=== PATIENT | male | born 1975 | race Caucasian/White ===

== ENCOUNTER → 2018-11-06 16:48 | Outpatient (CLI) | payer OTHER, SELFPAY ==
--- NOTE | 2018-11-06 16:53 | MR_ITS ---
PROCEDURE: MR KNEE RT WO CON CLINICAL INDICATION: RIGHT KNEE PAIN Medial knee pain and swelling. Prior ACL repair the min COMPARISON: LEAJW/ORT MRI-LOW EXT ANY JOINT W/O-RT from 08/12/2015 Knee R from 10/17/2018 TECHNIQUE: Routine multiplanar multi echo sequences are performed without gadolinium enhancement. FINDINGS: There has been prior ACL repair. The graft is fairly thick and does not appear discontinuous. The PCL and the collateral ligaments appear intact. The patellar tendon and quadriceps tendon have an unremarkable appearance. There is increased T2 signal involving the medial aspect of the anterior horn of the lateral meniscus but does not meet strict MRI criteria for meniscal tear and had a similar appearance on the previous exam. There is complex tear involving the posterior horn of the medial meniscus which has developed since the previous study. There is some mild separation of the meniscal fragments at this area by approximately 4 mm. 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 There is a small knee joint effusion in the suprapatellar region. There is fairly significant artifact from the ACL surgery. Patellar cartilage is well preserved. IMPRESSION: 1. Prior ACL repair. The ACL graft appears intact 2. Complex tear involves the posterior horn of the medial meniscus with mild separation of the meniscal fragments 3. Small knee joint effusion Dictated by: Trell Marino MD 11/07/2018 12:30 Signed by: <Electronically signed by Trell Marino MD in [place]> 11/07/2018 12:30
== END ==
PROVIDERS: PCP Internal Medicine Adolescent Medicine; Visit Provider Internal Medicine Adolescent Medicine
DX: M25.561 Pain in right knee (principal)
CPT/HCPCS: 73721

== ENCOUNTER → 2018-12-03 16:33 | Outpatient (CLI) | payer OTHER, SELFPAY ==
--- NOTE | 2018-12-03 16:43 | XR_ITS ---
PROCEDURE: XR CHEST 2V CLINICAL HISTORY: CURRENT SMOKER COMPARISON: CXR CHEST(2 VIEWS-NOT PORTABLE) from 07/05/2014 CXR CHEST(2 VIEWS-NOT PORTABLE) from 07/10/[address] [facility] [address] CHEST W/O CONTRAST from 10/07/2016 FINDINGS: The cardiomediastinal silhouette and pulmonary vascularity are within normal limits. The lungs are clear without infiltrates, suspicious nodules, or pleural effusions. No acute bony abnormalities. IMPRESSION: No acute findings. Dictated by: Trell Marino MD 12/03/2018 16:55 Electronically signed by Trell Marino MD in [place] 12/03/2018 16:55
[2018-12-03 17:17] LABS: Basophils # 0.2 K/mm3 (0-0.2); Basophils % 1.1 % (0.1-2.0); Eosinophils # 0.6 K/mm3 (0.0-0.4); Eosinophils % 4.5 % (0.1-12.0); Hematocrit 48.9 % (42.0-52.0); Hemoglobin 15.7 g/dL (14.1-18.0); Lymphocytes % 29.2 % (10-50); Mean Corpuscular HGB Conc 32.1 g/dL (31.8-35.4); Mean Corpuscular Hemoglobin 28.8 pg (27.0-31.2); Mean Corpuscular Volume 89.9 fl (80-94); Mean Platelet Volume 6.9 fl (7.4-10.4); Monocytes % 7.1 % (1.7-9.3); Neutrophils # 7.9 K/mm3 (1.8-7.8); Platelet Count 482 K/mm3 (142-424); Red Blood Count 5.44 M/mm3 (4.60-6.20); Red Cell Distribution Width 14.6 % (11.5-17.5); White Blood Count 13.6 K/mm3 (4.8-10.8)
[2018-12-03 18:08] LABS: Anion Gap 13.4 mEq/L (5-15); Blood Urea Nitrogen 12 mg/dL (7-18); Calcium 8.7 mg/dL (8.5-10.1); Carbon Dioxide 29 mmol/L (21.0-32.0); Chloride 102 mmol/L (98-107); Creatinine,Serum 0.89 mg/dL (0.70-1.30); Estimated Glomerular Filt Rate 92 ml/min (>60); GFR (African American) 112 ML/MIN (>60); Glucose 82 mg/dL (74-106); Potassium 4.4 mmoL/L (3.5-5.1); Sodium 140 mmol/L (136-145)
== END ==
PROVIDERS: PCP Internal Medicine Adolescent Medicine; Visit Provider Orthopaedic Surgery
DX: Z01.818 Encounter for other preprocedural examination (principal); S83.231A Complex tear of medial meniscus, current injury, right knee, initial encounter
CPT/HCPCS: 36415; 71046; 80048; 85025

== ENCOUNTER 2019-09-18 08:46 | Emergency (ER) | payer OTHER, SELFPAY ==
[2019-09-18 09:00] VITALS: BP 129/90; PULSE 91; RESP 14; TEMP 36.8; O2SAT 99; BMI 34.0
--- NOTE | 2019-09-18 09:05 | XR_ITS ---
PROCEDURE: XR ANKLE RT MIN 3V CLINICAL INDICATION: heel pain COMPARISON: No exams were available for comparison FINDINGS: No fracture or dislocation. No lytic or blastic change. No significant degenerative change. There is a small os trigonum and a small calcaneal spur. IMPRESSION: Negative right ankle Dictated by: Trell Marino MD 09/18/2019 09:42 Electronically signed by Trell Marino MD in [place] 09/18/2019 09:42
--- NOTE | 2019-09-18 09:06 | XR_ITS ---
PROCEDURE: XR FOOT RT MIN 3V CLINICAL INDICATION: pain Pain COMPARISON: FTL3 FOOT-LT-3 VIEWS from 05/10/2013 FINDINGS: No fracture or dislocation. No lytic or blastic change. There is normal mineralization. The joint spaces are well-preserved. No significant degenerative/arthritic changes. No erosive changes evident. Other findings:There is a small calcaneal spur without obvious erosive change. IMPRESSION: No acute findings. Dictated by: Trell Marino MD 09/18/2019 09:46 Electronically signed by Trell Marino MD in [place] 09/18/2019 09:46
--- NOTE | 2019-09-18 09:07 | HMH.EDGENADL ---
ED Disposition Clinical Impression: Right Achilles tendinitis Disposition: Home, Self-Care Condition on Discharge: Good Instructions: DI for Achilles Tendinopathy Prescriptions: Ibuprofen [Ibuprofen 800mg Tablet] 800 mg PO TIDP PRN #20 tab PRN Reason: Moderate Pain Transmission Status: Pending to [facility] Referrals: Hany Espinosa MD [Primary Care Provider] - Time of Disposition: 09:58 - Critical Care Critical Care Time: No Attestation: On , the high probability of a clinically significant, sudden or life threatening deterioration of the following system(s) required my full and direct attention, intervention and personal management. The time I documented below is in addition to time spent performing reported procedures but includes the following listed in this critical care notation. Medical Decision Making - Medical Records Medical records reviewed: Yes: I reviewed the patient's medical records. - Kyle Inquiry Pt receiving controlled substance: No Vital Signs: 09/18/19 09:00 09/18/19 09:30 Temperature 98.3 F Temperature Source Oral Pulse Rate [Right Brachial] 91 H 89 Respiratory Rate 14 20 Blood Pressure [Right Arm] 129/90 141/87 H Blood Pressure Mean [Right Arm] 103 105 Blood Pressure Source [Right Arm] Automatic Cuff Automatic Cuff Blood Pressure Position [Right Arm] Sitting Supine 02 Sat by Pulse Oximetry 99 100 Oxygen Delivery Method Room Air Room Air Orders (Tests/Meds): ED MEDICATIONS Discontinued Medications Generic Name Dose Route Start Last Admin Trade Name Freq PRN Reason Stop Dose Admin Ibuprofen 800 mg 09/18/19 09:06 09/18/19 09:11 Motrin 400mg Tablet PO 09/18/19 09:07 800 mg ONCE ONE Administration - Radiology Data #1 FINDINGS: No fracture or dislocation. No lytic or blastic change. There is normal mineralization. The joint spaces are well-preserved. No significant degenerative/arthritic changes. No erosive changes evident. Other findings:There is a small calcaneal spur without obvious erosive change. IMPRESSION: No acute findings. #2 FINDINGS: No fracture or dislocation. No lytic or blastic change. No significant degenerative change. There is a small os trigonum and a small calcaneal spur. IMPRESSION: Negative right ankle - Reevaluation(s) Time: 09:57 Reevaluation #1: On reevaluation, the patient's pain has improved. I do believe he likely has tendon injury to the Achilles area. Patient will be discharged with analgesics. He was provided Lamonte wrap. Given injury prevention instructions. As well as strict return precautions. Verbalized understanding. Medical Decision Narrative: This is a 43-year-old male presented to the emergency department with right foot pain. I do believe patient has symptoms consistent with Achilles tendon sprain. Imaging will be obtained. General Adult HPI - General Chief complaint: PAIN Stated complaint: right foot injury at work Time Seen by Provider: 09/18/19 09:00 Mode of Arrival: Ambulatory Limitations: No Limitations Description of Symptoms (Recalled from ER Triage Doc. by RN): pt c/o pain in his right heel in the back of his ankle. Started hurting a couple of days ago. Denies any injury and unaware of anyting he may have done to injury it - History of Present Illness HPI narrative: This is a 43-year-old male presenting to the emergency department with pain in his right foot. Patient states the pain is located on the back near the heel. 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 He noticed yesterday that the pain started to worsen. He is having some mild swelling on the back of his foot. Worse when he tries to ambulate. He does have range of motion, however it does induce some pain. He denies any swelling in the calf or leg. No other injuries were sustained. - Related Data Home Medications
--- NOTE | 2019-09-18 09:11 | PC.NURSE ---
pt with rad at this time.
[2019-09-18 09:30] VITALS: BP 141/87; PULSE 89; RESP 20; O2SAT 100
[2019-09-18 09:51] VITALS: BP 125/92; PULSE 92; RESP 20; O2SAT 98
[2019-09-18 10:14] VITALS: BP 125/90; PULSE 95; RESP 16; TEMP 36.8; O2SAT 98
== END 2019-09-18 10:14 | disposition home or self-care (01) ==
PROVIDERS: Emergency Provider Emergency Medicine; PCP Internal Medicine Adolescent Medicine
DX: M76.61 Achilles tendinitis, right leg (principal); F17.210 Nicotine dependence, cigarettes, uncomplicated; Z88.8 Allergy status to other drugs, medicaments and biological substances; X50.1XXA Overexertion from prolonged static or awkward postures, initial encounter; Y92.69 Other specified industrial and construction area as the place of occurrence of the external cause; Y99.0 Civilian activity done for income or pay
CPT/HCPCS: 73610; 73630; 99282

== ENCOUNTER 2019-10-04 12:25 | Emergency (ER) | payer OTHER, SELFPAY ==
[2019-10-04] VITALS (12 sets, daily range): BP systolic 120–150; BP diastolic 74–88; PULSE 69–95; RESP 17–29; TEMP 36.5–36.6; O2SAT 92–98; BMI 34.7
--- NOTE | 2019-10-04 12:32 | ECG_ITS ---
APPROVED REPORT Exam: Resting ECG HR:92 bpm ECG Measurements Heart Rate 92 AXES HI 148 P 61 QRSd 100 QRS 63 QT 364 T 64 QTc 450 <Conclusion> Normal sinus rhythm Normal ECG Electronically signed by : Laurent Elias, 10/05/2019 09:03:56
--- NOTE | 2019-10-04 12:32 | XR_ITS ---
PROCEDURE: XR CHEST 2V CLINICAL HISTORY: CP COMPARISON: CXR CHEST(2 VIEWS-NOT PORTABLE) from 07/05/2014 CXR CHEST(2 VIEWS-NOT PORTABLE) from 07/10/[address] [facility] [address] CHEST W/O CONTRAST from 10/07/2016 XR CHEST 2V from 12/03/2018 FINDINGS: The cardiomediastinal silhouette and pulmonary vascularity are within normal limits. The lungs are clear without infiltrates, suspicious nodules, or pleural effusions. No acute bony abnormalities. IMPRESSION: No acute findings. Dictated by: Dr. Jose Maria Nguyen MD 10/04/2019 13:[address] Jose Maria Nguyen MD in [place] 10/04/2019 13:47
--- NOTE | 2019-10-04 12:34 | HMH.EDCP ---
ED Disposition Clinical Impression: Atypical chest pain Disposition: Home, Self-Care Condition on Discharge: Good Instructions: DI for Atypical Chest Pain Prescriptions: hydrOXYzine HCL [Hydroxyzine HCl] 50 mg PO Q8HP PRN #30 tab PRN Reason: anxiety/insomnia Transmission Status: Pending to [facility] Referrals: Edward Valderrama MD [Primary Care Provider] - - Critical Care Critical Care Time: No Attestation: On 10/04/19, the high probability of a clinically significant, sudden or life threatening deterioration of the following system(s) required my full and direct attention, intervention and personal management. The time I documented below is in addition to time spent performing reported procedures but includes the following listed in this critical care notation. Medical Decision Making - Medical Records Medical records reviewed: Yes: I reviewed the patient's medical records. - Kyle Inquiry Pt receiving controlled substance: No Vital Signs: 10/04/19 12:25 10/04/19 13:12 10/04/19 13:28 Temperature 97.7 F Temperature Source Oral Pulse Rate [Left Radial] 93 H 90 85 Respiratory Rate 22 17 26 H Blood Pressure [Right Arm] 150/88 H 129/74 133/86 Blood Pressure Mean [Right Arm] 108 92 101 Blood Pressure Source [Right Arm] Automatic Cuff Blood Pressure Position [Right Arm] Sitting Supine Sitting 02 Sat by Pulse Oximetry 98 96 98 Oxygen Delivery Method Room Air Room Air Room Air 10/04/19 13:33 10/04/19 14:02 10/04/19 14:32 Temperature Temperature Source Pulse Rate [Left Radial] 86 80 72 Respiratory Rate 23 29 H 18 Blood Pressure [Right Arm] 132/86 130/77 127/82 Blood Pressure Mean [Right Arm] 101 94 97 Blood Pressure Source [Right Arm] Automatic Cuff Automatic Cuff Automatic Cuff Blood Pressure Position [Right Arm] Supine Supine Supine 02 Sat by Pulse Oximetry 92 L 95 96 Oxygen Delivery Method Room Air Room Air Room Air 10/04/19 15:17 10/04/19 15:38 10/04/19 16:25 Temperature Temperature Source Pulse Rate [Left Radial] 72 78 Respiratory Rate 20 21 20 Blood Pressure [Right Arm] 126/84 140/86 134/79 Blood Pressure Mean [Right Arm] 98 104 97 Blood Pressure Source [Right Arm] Automatic Cuff Automatic Cuff Automatic Cuff Blood Pressure Position [Right Arm] Supine Supine Supine 02 Sat by Pulse Oximetry 95 94 L 93 L Oxygen Delivery Method Room Air Room Air 10/04/19 16:55 Temperature Temperature Source Pulse Rate [Left Radial] 69 Respiratory Rate 18 Blood Pressure [Right Arm] 120/81 Blood Pressure Mean [Right Arm] 94 Blood Pressure Source [Right Arm] Automatic Cuff Blood Pressure Position [Right Arm] Supine 02 Sat by Pulse Oximetry 94 L Oxygen Delivery Method Room Air - Lab Data Lab results reviewed: Yes: I reviewed the patient's lab results. Lab Results 10/04/19 12:33: VBG pH 7.36, VBG pCO2 45.6, VBG pO2 59.6 H, VBG HCO3 25.1, VBG Total CO2 26.5, VBG O2 Saturation 91.5 H, VBG Base Excess -0.3 10/04/19 12:44: WBC 11.0 H, RBC 5.45, Hgb 17.0, Hct 48.3, MCV 88.6, MCH 31.1, MCHC 35.1, RDW 13.8, Plt Count 387, MPV 7.0 L, Neut % (Auto) 50.3, Lymph % (Auto) 33.7, Gillespie % (Auto) 6.6, Eos % (Auto) 8.2, Baso % (Auto) 1.2, Neut # (Auto) 5.6, Lymph # (Auto) 3.7, Gillespie # (Auto) 0.7, Eos # (Auto) 0.9 H, Baso # (Auto) 0.1 10/04/19 12:44: Sodium 138, Potassium 3.6, Chloride 102, Carbon Dioxide 26, Anion Gap 13.6, BUN 10, Creatinine 0.80, Estimated Creat Clear 200, Estimated GFR 104, Est GFR ( Amer) 126, Glucose 126 H, Calcium 9.4, Troponin I < 0.01, NT-Pro-B Natriuret Pep 32.8, TSH 2.27 10/04/19 12:44: D-Dimer < 100 10/04/19 14:04: Troponin I < 0.01 10/04/19 16:41: Troponin I < 0.01 Result diagrams: 10/04/19 12:44 10/04/19 12:44 Orders (Tests/Meds): ED MEDICATIONS Generic Name Dose Route Start Last Admin Trade Name Freq PRN Reason Stop Dose Admin Sodium Chloride 10 ml 10/04/19 12:34 10/04/19 12:47 Sodium Chloride 0.9% 10ml Vial IV 11/03/19 12:33 10 ml
[2019-10-04 12:45] LABS: Basophils # 0.1 K/mm3 (0-0.2); Basophils % 1.2 % (0.1-2.0); Eosinophils # 0.9 K/mm3 (0.0-0.4); Eosinophils % 8.2 % (0.1-12.0); Hematocrit 48.3 % (42.0-52.0); Lymphocytes # 3.7 K/mm3 (0.7-4.5); Lymphocytes % 33.7 % (10-50); Mean Corpuscular HGB Conc 35.1 g/dL (31.8-35.4); Mean Corpuscular Hemoglobin 31.1 pg (27.0-31.2); Mean Corpuscular Volume 88.6 fl (80-94); Monocytes # 0.7 K/mm3 (0.1-1.0); Monocytes % 6.6 % (1.7-9.3); Neutrophils # 5.6 K/mm3 (1.8-7.8); Neutrophils % 50.3 % (37.0-80.0); Platelet Count 387 K/mm3 (142-424); Red Blood Count 5.45 M/mm3 (4.60-6.20); Red Cell Distribution Width 13.8 % (11.5-17.5)
[2019-10-04 12:48] LABS: Chloride 102 mmol/L (98-107); Sodium 138 mmol/L (136-145)
[2019-10-04 12:49] LABS: Potassium 3.6 mmoL/L (3.5-5.1)
[2019-10-04 12:51] LABS: Blood Urea Nitrogen 10 mg/dl (9-20); Creatinine Clearance Estimated 200 mL/min (50-200); Estimated Glomerular Filt Rate 104 ml/min (>60); GFR (African American) 126 ML/MIN (>60)
[2019-10-04 12:52] LABS: Anion Gap 13.6 mEq/L (5-15); Calcium 9.4 mg/dl (8.4-10.2); Carbon Dioxide 26 mmol/L (22.0-30.0); Glucose 126 mg/dl (74-100)
[2019-10-04 13:01] LABS: NT Pro Brain Natriuretic Pep. 32.8 pg/mL (0-125)
[2019-10-04 13:03] LABS: VBG Base Excess -0.3 mmol/L (-2.4-2.3); VBG HCO3 25.1 mmol/L (23-30); VBG PCO2 45.6 mmol/L (35-51); VBG PH 7.36 mmol/L (7.31-7.41); VBG PO2 59.6 mmol/L (28-40); VBG Total CO2 26.5 mmol/L (23-27)
[2019-10-04 13:04] LABS: VBG Oxygen Saturation 91.5 % (50-70)
[2019-10-04 13:09] LABS: Troponin I < 0.01 ng/ml (0.00-0.034)
[2019-10-04 13:10] LABS: D-Dimer < 100 ng/mL (0-400)
--- NOTE | 2019-10-04 13:13 | PC.NURSE ---
pt states he has had 2 episodes of chest tightness since coming to the ed. pt states something just doesn't feel right .
--- NOTE | 2019-10-04 13:15 | ECG_ITS ---
APPROVED REPORT Exam: Resting ECG HR:89 bpm ECG Measurements Heart Rate 89 AXES NE 150 P 56 QRSd 94 QRS 58 QT 362 T 60 QTc 440 <Conclusion> Normal sinus rhythm Normal ECG Electronically signed by : Laurent Elias, 10/05/2019 09:04:04
--- NOTE | 2019-10-04 13:16 | PC.NURSE ---
pt's came to nurses station stating pt is having chest tightness radiating into rt side neck.
--- NOTE | 2019-10-04 13:16 | PC.NURSE ---
informed of pt c/o chest tightness
--- NOTE | 2019-10-04 13:19 | ECG_ITS ---
APPROVED REPORT Exam: Resting ECG HR:93 bpm ECG Measurements Heart Rate 93 AXES WA 150 P 64 QRSd 96 QRS 59 QT 362 T 62 QTc 450 <Conclusion> Normal sinus rhythm Normal ECG Electronically signed by : Laurent Elias, 10/05/2019 09:04:51
[2019-10-04 13:23] LABS: Thyroid Stimulating Hormone 2.27 uIU/mL (0.465-4.68)
--- NOTE | 2019-10-04 13:31 | PC.NURSE ---
at bedside updated on plan of care
--- NOTE | 2019-10-04 13:34 | PC.NURSE ---
got pt a drink
[2019-10-04 14:45] LABS: Troponin I < 0.01 ng/ml (0.00-0.034)
--- NOTE | 2019-10-04 15:03 | PC.NURSE ---
dr inocencia berry.
--- NOTE | 2019-10-04 15:10 | PC.NURSE ---
speaking to Dr Ibarra
[2019-10-04 17:08] LABS: Troponin I < 0.01 ng/ml (0.00-0.034)
--- NOTE | 2019-10-04 17:22 | PC.NURSE ---
pt has been in room resting have been checking on pt every 1/2 hr or so to see if he has needed anything. has been in room with pt
== END 2019-10-04 17:49 | disposition home or self-care (01) ==
PROVIDERS: Emergency Provider Emergency Medicine; PCP Internal Medicine Adolescent Medicine
DX: R07.89 Other chest pain (principal); F17.210 Nicotine dependence, cigarettes, uncomplicated
CPT/HCPCS: 71046; 80048; 82803; 83880; 84443; 84484; 85025; 85378; 93005; 96372; 96374; 99284

== ENCOUNTER 2019-12-11 12:04 | Emergency (ER) | payer OTHER, SELFPAY ==
[2019-12-11 12:12] VITALS: BP 129/85; PULSE 98; RESP 18; TEMP 36.7; O2SAT 99; BMI 35.3
--- NOTE | 2019-12-11 12:53 | HMH.EDUTC ---
[facility] [place] Disposition Clinical Impression: Viral syndrome Disposition: Home, Self-Care Condition on Discharge: Good Instructions: Preventing the Spread of Coronavirus Discharge Instructions Additional Instructions: Drink plenty of fluids. Take tylenol or ibuprofen for pain or fever. Take the medications as directed. Follow up with your regular doctor. GO TO THE ER FOR ANY WORSENING SYMPTOMS FOLLOW THE DIRECTIONS ON THE COVID-19 HAND OUT THAT WE GAVE YOU REGARDING SELF-ISOLATION UNTIL YOU KNOW YOUR COVID-19 RESULTS Prescriptions: Halobetasol Propionate 15 gm TP BIDP PRN #1 tube PRN Reason: Itching Transmission Status: Received by [facility] Referrals: Hany Espinosa MD [Primary Care Provider] - Time of Disposition: 13:16 Medical Decision Making - Medical Records Medical records reviewed: Yes: I reviewed the patient's medical records. - Kyle Inquiry Pt receiving controlled substance: No Vital Signs: 12/11/19 12:12 12/11/19 12:55 Temperature 98.0 F 98.0 F Temperature Source Oral Oral Pulse Rate 98 H Pulse Rate [Radial] 98 H Respiratory Rate 18 18 Blood Pressure 129/85 Blood Pressure [Right Arm] 129/85 Blood Pressure Mean [Right Arm] 99 Blood Pressure Source Automatic Cuff Blood Pressure Source [Right Arm] Automatic Cuff Blood Pressure Position Sitting Blood Pressure Position [Right Arm] Sitting 02 Sat by Pulse Oximetry 99 Oxygen Delivery Method Room Air Room Air [facility] [place] HPI - General Stated complaint: right foot pain Time Seen by Provider: 12/11/19 12:15 Mode of Arrival: Ambulatory Source of Information: Patient Limitations: No Limitations Description of Symptoms (Recalled from Triage Doc. by RN): sore on right foot. Needs medication refill. HEENT Symptoms (Recalled from RN notes): No Resp Symptoms (Recalled from RN notes): No Skin Symptoms (Recalled from RN notes): Yes MS Symptoms (Recalled from RN notes): No Functional Status (Recalled from RN notes): wnl - History of Present Illness Provider Complaint: He has a history of a long standing rash on his feet. 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 So, he is out of refills on the cream that he puts on his foot and he is having a breakout. - Related Data Previous Rx's Medication Instructions Recorded hydrOXYzine HCL [Hydroxyzine HCl] 50 mg PO Q8HP PRN #30 tab 10/04/19 Halobetasol Propionate 15 gm TP BIDP PRN #1 tube 12/11/19 Allergies Allergy/AdvReac Type Severity Reaction Status Date / Time acetaminophen Allergy Unknown Verified 09/18/19 09:07 promethazine Allergy Unknown NA-HALLUCIN Verified 09/18/19 09:07 ATIONS - Worker's Comp Is this a Worker's Comp case?: No [facility] History - Hepatitis A Screen Drug use history?: No High risk sexual behaviors?: No History of sexually transmitted infection?: No Currently employed?: No Childcare worker?: No Do you have indoor plumbing?: Yes Do you have electricity?: Yes Attestation statement:: This patient has been screened for Hepatitis A risk factors. I have reviewed the patient's past medical history: Yes Medical History: Denies:: Diabetes Mellitus Type 1, Diabetes Mellitus Type 2, Seizures Other Medical History: Denies: Blood Transfusion Reaction Comment: obesity Laterality Cases: Right: ACL Repair, Arthroscopy Knee, Bilateral: Tonsillectomy Amputation: No Fractures: No - Social History Smoking Status: Current every day smoker Tobacco Type: cigarettes # Packs/Day (cigarettes): 1 Alcohol Intake: never Substance Use Type: denies use Occupational Status: employed Housing: house Household Members: other Family Hx:: No significant family history ROS Obtained: Yes All systems reviewed & no additional complaints - Constitutional Constitutional: Denies chills, Denies fever(s) - Integumentary/Breas
[2019-12-11 12:55] VITALS: BP 129/85; PULSE 98; RESP 18; TEMP 36.7; O2SAT 99
== END 2019-12-11 13:04 | disposition home or self-care (01) ==
PROVIDERS: Emergency Provider Nurse Practitioner Family; PCP Internal Medicine Adolescent Medicine
DX: B34.9 Viral infection, unspecified (principal); M79.671 Pain in right foot; F17.210 Nicotine dependence, cigarettes, uncomplicated; Z88.8 Allergy status to other drugs, medicaments and biological substances
CPT/HCPCS: 99201

== ENCOUNTER 2020-09-22 16:02 | Emergency (ER) | payer OTHER, SELFPAY ==
[2020-09-22 16:10] VITALS: BP 134/107; PULSE 79; RESP 16; TEMP 37; O2SAT 95; BMI 14.7
[2020-09-22 16:13] VITALS: BP 134/107; PULSE 79; RESP 16; TEMP 37; O2SAT 95; BMI 32.5
--- NOTE | 2020-09-22 16:21 | XR_ITS ---
PROCEDURE: XR ORBIT BILATERAL MIN 4V CLINICAL INDICATION: hit in face with pry bar COMPARISON: No exams were available for comparison FINDINGS: No obvious fracture or dislocation. No sinus air-fluid level. No lytic or blastic change. Other findings:None. IMPRESSION: Negative orbits. If pain persists, then would recommend CT of the facial bones for more thorough evaluation. Dictated by: Trell Marino MD 09/22/2020 16:52 Trell Marino MD in [place] 09/22/2020 16:52
--- NOTE | 2020-09-22 16:25 | HMH.EDUTC ---
[facility] [place] Disposition Clinical Impression: Orbital contusion Qualifiers: Encounter type: initial encounter Laterality: left Qualified Code(s): S05.12XA - Contusion of eyeball and orbital tissues, left eye, initial encounter Disposition: Home, Self-Care Condition on Discharge: Good Instructions: Contusion, How To Perform RICE (Rest, Ice, Compress, Elevate) Additional Instructions: Ice to area 10-20 minutes every 2 hours for swelling Over the counter Motrin and/or Tylenol as directed on package for pain Return if needed If pain and swelling persists follow up with your family doctor if pain and swelling persist for CT or further evaluation Follow up with [facility] if you start having any pain or changes in vision Straight to ER if any life threatening symptoms or worse headache of your life Referrals: Hany Espinosa MD [Primary Care Provider] - As needed Time of Disposition: 17:04 Medical Decision Making - Kyle Inquiry Pt receiving controlled substance: No Kyle was queried for this patient: No Vital Signs: 09/22/20 16:10 09/22/20 16:13 09/22/20 17:03 Temperature 98.6 F 98.6 F 98.6 F Temperature Source Oral Oral Pulse Rate 79 Pulse Rate [Left] 79 79 Respiratory Rate 16 16 16 Blood Pressure 134/107 H Blood Pressure [Right Arm] 134/107 H 134/107 H Blood Pressure Mean [Right Arm] 116 116 Blood Pressure Source [Right Arm] Automatic Cuff Blood Pressure Position [Right Arm] Sitting Supine 02 Sat by Pulse Oximetry 95 95 Oxygen Delivery Method Room Air Room Air - Radiology Data #1 Image(s): Other (Orbital ) Image Reviewed: Yes I have reviewed radiologist's interpretation Negative orbits. If pain persists, then would recommend CT of the facial bones for more thorough evaluation. Medical Decision Narrative: Discussed with patient that could send him to the ED for CT and patient declined Patient still denies pain or injury to eye State that he is having no difficulty with vision nor does he feel any irritation or pain in eye States that just sore under left eye with swelling and bruising States that he will follow up with his PCP or return to the ED if any worsening of symptoms or pain [facility] HPI - General Stated complaint: WC 09/22@1500 injured left eye Time Seen by Provider: 09/22/20 16:26 Mode of Arrival: Ambulatory Source of Information: Patient Limitations: No Limitations Description of Symptoms (Recalled from Triage Doc. by RN): patient was using prybar when tension broke loose and pry bar hit patient in face under left eye. patient does not have any vision loss, but swelling noted under left eye with abrasion. - History of Present Illness Provider Complaint: Patient states that he was at work and was looking up using a prybar State that the tension broke and the bar hit him under his left eye Denies any trouble seeing or pain in his eye but has notiable swelling with abrasion under his left eye. State that having pain and tenderness under his eye Denies changes in vision - Related Data Home Medications Medication Instructions Recorded Confirmed No Known Home Medications 09/22/20 09/22/20 Allergies Allergy/AdvReac Type Severity Reaction Status Date / Time acetaminophen Allergy Unknown Verified 09/18/19 09:07 promethazine Allergy Unknown NA-HALLUCIN Verified 09/18/19 09:07 ATIONS - Worker's Comp Is this a Worker's Comp case?: No [facility] History - Hepatitis A Screen Drug use history?: No High risk sexual behaviors?: No History of sexually transmitted infection?: No Currently employed?: No Childcare worker?: No Do you have indoor plumbing?: Yes Do you have electricity?: Yes Attestation statement:: This patient has been screened for Hepatitis A risk factors. I have reviewed the patient's past medical history: Yes Medical History: Denies:: Diabetes Mellitus Type 1, Diabetes Mellitus Type 2, Seizures Other Medical History: Denies: Blood Transfusion Reaction
[2020-09-22 17:03] VITALS: BP 134/107; PULSE 79; RESP 16; TEMP 37; O2SAT 95
== END 2020-09-22 17:07 | disposition home or self-care (01) ==
PROVIDERS: Emergency Provider Nurse Practitioner; PCP Internal Medicine Adolescent Medicine
DX: S05.12XA Contusion of eyeball and orbital tissues, left eye, initial encounter (principal); W22.8XXA Striking against or struck by other objects, initial encounter; Y92.63 Factory as the place of occurrence of the external cause; Y99.0 Civilian activity done for income or pay; Z88.0 Allergy status to penicillin; F17.210 Nicotine dependence, cigarettes, uncomplicated
CPT/HCPCS: 70200; 99202; G0463

== ENCOUNTER 2020-12-01 11:09 | Emergency (ER) | payer OTHER, SELFPAY ==
[2020-12-01 11:20] VITALS: BP 141/84; PULSE 87; RESP 19; TEMP 36.6; O2SAT 98; BMI 35.3
--- NOTE | 2020-12-01 11:40 | HMH.EDUTC ---
[facility] [place] Clinical Impression: Sinusitis Qualifiers: Sinusitis location: unspecified location Chronicity: unspecified Qualified Code(s): J32.9 - Chronic sinusitis, unspecified Disposition: Home, Self-Care Condition on Discharge: Good Instructions: Sinusitis, DI for Sinusitis, Doxycycline, Benzonatate Additional Instructions: *Monitor Temp, Over the counter Motrin or Tylenol as directed/as needed Tylenol every 4 hours and Motrin every 6 hours (as long as your family doctor has told you that you can take it) for fever or pain. and straight to ER if unable to lower temp less than 101.0 after medication given Make sure to drink plenty of fluids Take medication as prescribed *Sleep elevated *Humidifier/Vaporizer *Flonase 2 sprays in each nostril daily but be aware that it may take 2-3 days before you notice improvement Follow up IMMEDIATELY for new or worsening symptoms or no Noticeable improvement over the next 48-72 hours. 911 for difficulty breathing or swallowing Prescriptions: Doxycycline Monohydrate [Doxycycline [place] 100mg Tab] 100 mg PO Q12 7 Days #14 tab Transmission Status: Received by [facility] Fluticasone Propionate [Flonase Allergy Relief NS] 1 spray NS DAILY #1 each Transmission Status: Received by [facility] Benzonatate [Tessalon Perle 100mg Cap*] 100 mg PO TID PRN #30 cap PRN Reason: Cough Transmission Status: Received by [facility] Referrals: Edward Valderrama MD [Primary Care Provider] - As needed Forms: Work/School Release Time of Disposition: 11:45 Medical Decision Making - Kyle Inquiry Pt receiving controlled substance: No Kyle was queried for this patient: No Vital Signs: 12/01/20 11:20 12/01/20 11:49 Temperature 97.8 F 97.8 F Temperature Source Oral Pulse Rate 87 Pulse Rate [Left] 87 Respiratory Rate 19 19 Blood Pressure 141/84 H Blood Pressure [Right Arm] 141/84 H Blood Pressure Mean [Right Arm] 103 02 Sat by Pulse Oximetry 98 Orders (Tests/Meds): ED MEDICATIONS Discontinued Medications Generic Name Dose Route Start Last Admin Trade Name Freq PRN Reason Stop Dose Admin Ceftriaxone Sodium 1 gm 12/01/20 11:41 12/01/20 11:48 Ceftriaxone 1gm Vial IM 12/01/20 11:42 1 gm ONCE ONE Administration Lidocaine HCl 0 ml 12/01/20 11:41 12/01/20 11:47 Lidocaine 1% 5ml Pf Vial IM 12/01/20 11:42 2.5 ml ONCE ONE Administration Methylprednisolone Sodium Succinate 125 mg 12/01/20 11:41 12/01/20 11:48 Methylprednisolone Sod Succ 125mg Vial IM 12/01/20 11:42 125 mg ONCE ONE Administration [facility] [place] - General Stated complaint: sinus congestion Time Seen by Provider: 12/01/20 11:40 Mode of Arrival: Ambulatory Source of Information: Patient Limitations: No Limitations Description of Symptoms (Recalled from Triage Doc. by RN): pt states he has had sinus pressure and a cough for one week. pt believes he has a sinus infection. HEENT Symptoms (Recalled from RN notes): Yes (sinus pressure) Resp Symptoms (Recalled from RN notes): Yes (cough) Skin Symptoms (Recalled from RN notes): No MS Symptoms (Recalled from RN notes): No Functional Status (Recalled from RN notes): na - History of Present Illness Provider Complaint: Patient states that he gets a sinus infection around this time every year States that for over a week he has been has been having sinus pain and pressure along with cough and drainage in the back of his throat States that he has been having pressure behind his eyes and it has continued to get worse over the last few days so he came in - Related Data Previous Rx's Medication Instructions Recorded Benzonatate [Tessalon Perle 100mg 100 mg PO TID PRN #30 cap 12/01/20 Cap*] Doxycycline Monohydrate 100 mg PO Q12 7 Days #14 tab 12/01/20 [Doxycycline [place] 100mg Tab] Fluticasone Propionate [Flonase 1 spray NS DAILY #1 each 12/01/20 Allergy Relief NS] Allergies Allergy/AdvReac T
[2020-12-01 11:49] VITALS: BP 141/84; PULSE 87; RESP 19; TEMP 36.6
== END 2020-12-01 12:03 | disposition home or self-care (01) ==
PROVIDERS: Emergency Provider Nurse Practitioner; PCP Internal Medicine Adolescent Medicine
DX: J32.9 Chronic sinusitis, unspecified (principal)
CPT/HCPCS: 96372; 99202; G0463

== ENCOUNTER → 2021-05-05 11:59 | Outpatient (CLI) | payer OTHER, SELFPAY ==
--- NOTE | 2021-05-05 12:15 | CT_ITS ---
FINAL REPORT TECHNIQUE: After the administration of intravenous contrast, axial images were obtained through the abdomen and pelvis by computed tomography. The study was performed with techniques to keep radiation dose as low as reasonably achievable, (ALARA). Individual dose reduction techniques using automated exposure control or adjustment of mA and/or kV according to the patient's size were employed. CLINICAL HISTORY: LEFT LOWER QUADRANT ABDOMINAL PAIN FINDINGS: Abdomen: The lung bases are clear. The liver parenchyma is mildly fatty infiltrated. The gallbladder is present. The spleen, pancreas, adrenals and kidneys appear unremarkable. The aorta is normal in caliber. There is no free fluid or adenopathy. Pelvis: The appendix is normal. The urinary bladder is unremarkable. There is no free fluid or adenopathy. There is a small left inguinal hernia containing fat. IMPRESSION: No acute intra-abdominal process. Mild fatty infiltration of the liver. Small left inguinal hernia containing fat. Reviewed, Interpreted and Dictated by Zackary Morillo MD Transcribed by Christian Dominguez Authenticated by Zackary Morillo MD on 05/05/2021 02:35:45 PM [facility]
[2021-05-05 12:49] LABS: Basophils # 0.2 K/mm3 (0-0.2); Basophils % 1.6 % (0.1-2.0); Eosinophils # 0.7 K/mm3 (0.0-0.4); Hematocrit 49.5 % (42.0-52.0); Hemoglobin 17.1 g/dL (14.1-18.0); Lymphocytes # 3.6 K/mm3 (0.7-4.5); Lymphocytes % 33.2 % (10-50); Mean Corpuscular HGB Conc 34.6 g/dL (31.8-35.4); Mean Corpuscular Hemoglobin 30.5 pg (27.0-31.2); Mean Platelet Volume 7.3 fl (7.4-10.4); Monocytes % 8.8 % (1.7-9.3); Neutrophils # 5.5 K/mm3 (1.8-7.8); Neutrophils % 50.5 % (37.0-80.0); Platelet Count 443 K/mm3 (142-424); Red Blood Count 5.63 M/mm3 (4.60-6.20); Red Cell Distribution Width 13.4 % (11.5-17.5); White Blood Count 10.9 K/mm3 (4.8-10.8)
[2021-05-05 13:04] LABS: Chloride 99 mmol/L (98-107); Potassium 4.8 mmoL/L (3.5-5.1); Sodium 135 mmol/L (136-145)
[2021-05-05 13:07] LABS: Alanine Aminotransferase 32 U/L (12-78); Albumin Level 4.5 g/dl (3.5-5.0); Albumin/Globulin Ratio 1.7 (1.1-1.8); Alkaline Phosphatase 80 U/L (38-126); Anion Gap 10.8 mEq/L (5-15); Aspartate Amino Transferase 36 U/L (17-59); Bilirubin,Total 1.4 mg/dl (0.2-1.3); Blood Urea Nitrogen 12 mg/dl (9-20); Carbon Dioxide 30 mmol/L (22.0-30.0); Estimated Glomerular Filt Rate 90 ml/min (>60); GFR (African American) 109 ML/MIN (>60); Globulin 2.6 g/dL (1.3-3.2); Glucose 107 mg/dl (74-100); Magnesium 1.7 mg/dl (1.6-2.3); Total Protein,Serum 7.1 g/dl (6.3-8.2)
[2021-05-05 13:47] LABS: Troponin I 1.89 ng/ml (0.00-0.034)
[2021-05-05 15:50] LABS: CATHL Activated Clotting Time 363 SEC (74-125)
[2021-05-09 16:28] LABS: Testosterone, Total, LC/MS 249.4 ng/dL (264.0-916.0)
== END ==
PROVIDERS: PCP Internal Medicine Adolescent Medicine; Visit Provider Internal Medicine Adolescent Medicine
DX: R07.9 Chest pain, unspecified (principal); R10.32 Left lower quadrant pain; E29.1 Testicular hypofunction; R25.2 Cramp and spasm
CPT/HCPCS: 36415; 74177; 80053; 83735; 84402; 84403; 84484; 85025; 85347; Q9967

== ENCOUNTER 2021-05-05 14:48 | Inpatient (IN) | payer OTHER, SELFPAY ==
[2021-05-05] VITALS (18 sets, daily range): BP systolic 112–161; BP diastolic 60–96; PULSE 74–100; RESP 18–22; TEMP 36.9–37.1; O2SAT 92–99; BMI 35.3; BMI 36.3
--- NOTE | 2021-05-05 | IR_ITS ---
APPROVED REPORT Patient Location: Outpatient Cobol Engineer: MADDISON Pastrana RT (R) PROCEDURES Left heart catheterization Left ventriculogram Selective coronary angiogram Drug-eluting stent deployment to the mid to distal dominant right coronary artery INDICATION Acute non-ST elevation myocardial infarction, Coronary artery disease Informed consent was obtained prior to the procedure. COMPLICATIONS NONE Estimated Blood Loss: LESS THAN 10 ML TECHNIQUE One percent lidocaine used to anesthetize the right anterior aspect of the wrist. The right radial artery was accessed via the Seldinger technique. A 6 Spanish sheath was placed in the right radial artery. 2.5 mg of verapamil, 800 mcg of nitroglycerin, 1mg Lidocaine and 5000 U Heparin were given through the arterial sheath. The papa catheter was also used to perform left heart catheterization, left ventriculogram and selective coronary angiogram. At the end the diagnostic angiogram therapeutic heparin was administered giving a therapeutic ACT and the guide catheter was placed back in the right coronary artery followed by a Choice PT extra-support wire. A 5 mm x 30 mm resolute Irvin stent was deployed at 14 chacho reducing the severe stenosis to 0%. FRANCIA-3 flow was present before and after the procedure. At the end of the procedure the apparatus was removed the sheath was removed good hemostasis was achieved using TR banding patient was transferred to the postop holding area in stable condition ANGIOGRAPHIC RESULTS The left main artery Normal The left anterior descending artery Has proximal and mid vessel 10 to 20% diffuse luminal irregularities The circumflex artery Is nondominant and has diffuse 10% luminal irregularities The right coronary artery Is a massively large dominant vessel with a proximal concentric 20 to 30% stenosis and additional mid vessel 20% stenosis followed by an eccentric 80% stenosis with additional distal 20% stenoses The PAVON ventriculogram reveals Normal 65% The left ventricular end-diastolic pressure 10 mmHg IMPRESSION Acute non-ST elevation myocardial infarction stemming from the large dominant right coronary Successful stenting of the mid to distal dominant right coronary severe disease reduced to 0% with 1 large drug-eluting stent Normal ejection fraction Normal left ventricular end-diastolic pressure PLAN 1. Brilinta 90 twice daily plus aspirin 81 mg a day for 1 year 2. LDL less than 55 to be achieved with high intensity statin 3. Cardiac rehabilitation 4. Avoidance of tobacco products 5. SHARMAINE inhibitor's and beta-blockers 6. Aggressive risk factor modification Electronically signed by : Charlie Herrmann MD 05/05/2021 15:59:35
--- NOTE | 2021-05-05 14:46 | ECG_ITS ---
APPROVED REPORT Exam: Resting ECG HR:99 bpm ECG Measurements Heart Rate 99 AXES TN 153 P 61 QRSd 112 QRS 33 QT 352 T 34 QTc 408 Conclusion SINUS RHYTHM MODERATE INTRAVENTRICULAR CONDUCTION DELAY [110+ ms QRS DURATION] BORDERLINE ECG UNCONFIRMED REPORT Electronically signed by : Edward Valderrama MD 05/05/2021 19:16:49
--- NOTE | 2021-05-05 14:55 | PC.NURSE ---
GRETA FRANCES spoke with dr. donald
--- NOTE | 2021-05-05 14:56 | XR_ITS ---
FINAL REPORT CLINICAL HISTORY: chest pain COMPARISON: October 04, 2019 FINDINGS: The heart size is normal. The mediastinum is normal. There is no focal infiltrate or edema. There are no pleural effusions. There is no pneumothorax. There is no osseous abnormality. IMPRESSION: No acute cardiopulmonary process Reviewed, Interpreted and Dictated by Zackary Morillo MD Transcribed by Christian Dominguez Authenticated by Zackary Morillo MD on 05/05/2021 03:40:28 PM [facility]
--- NOTE | 2021-05-05 14:56 | PC.NURSE ---
rad notified of cxry order
--- NOTE | 2021-05-05 14:58 | PC.NURSE ---
waiting pond supervisor back from dr. vizcarra
--- NOTE | 2021-05-05 15:04 | PC.NURSE ---
GRETA FRANCES speaking Dr. Espinosa
--- NOTE | 2021-05-05 15:04 | PC.NURSE ---
spoke with dani in canvas shop laborer about pt
[2021-05-05 15:09] LABS: Coronavirus 19, PCR Not Detected (NotDetected); Influenza A, PCR Not Detected (NotDetected); Influenza B, PCR Not Detected (NotDetected)
--- NOTE | 2021-05-05 15:09 | PC.NURSE ---
pt to tin can laborer at this time
--- NOTE | 2021-05-05 15:09 | HMH.EDCP ---
ED Disposition Clinical Impression: NSTEMI (non-ST elevated myocardial infarction) Disposition: Admitted As Inpatient Condition on Discharge: Serious - Critical Care Critical Care Time: No Attestation: On 05/05/21, the high probability of a clinically significant, sudden or life threatening deterioration of the following system(s) required my full and direct attention, intervention and personal management. The time I documented below is in addition to time spent performing reported procedures but includes the following listed in this critical care notation. Medical Decision Making - Medical Records Medical records reviewed: Yes: I reviewed the patient's medical records. - Kyle Inquiry Pt receiving controlled substance: No Vital Signs: 05/05/21 14:49 Temperature 98.6 F Temperature Source Oral Pulse Rate [Right Radial] 96 H Respiratory Rate 22 Blood Pressure [Right Arm] 161/93 H Blood Pressure Mean [Right Arm] 115 Blood Pressure Source [Right Arm] Automatic Cuff Blood Pressure Position [Right Arm] Sitting 02 Sat by Pulse Oximetry 98 Oxygen Delivery Method Room Air Orders (Tests/Meds): ED MEDICATIONS Generic Name Dose Route Start Last Admin Trade Name Freq PRN Reason Stop Dose Admin Fentanyl Citrate 25 mcg 05/05/21 14:59 Fentanyl 100mcg/2ml Vial IV 05/06/21 14:59 Q3MINP PRN Moderate to Severe Pain Fentanyl Citrate 50 mcg 05/05/21 14:59 Fentanyl 100mcg/2ml Vial IV 05/06/21 14:59 Q3MINP PRN Moderate to Severe Pain Fentanyl Citrate 25 mcg 05/05/21 14:59 Fentanyl 250mcg/5ml Vial IV 05/06/21 14:59 Q3MINP PRN Moderate to Severe Pain Fentanyl Citrate 50 mcg 05/05/21 14:59 Fentanyl 250mcg/5ml Vial IV 05/06/21 14:59 Q3MINP PRN Moderate to Severe Pain Flumazenil 0.2 mg 05/05/21 14:59 Flumazenil 0.1mg/Ml 5ml Vial IV 05/05/21 23:00 NEEDED PRN Sedation Heparin Sodium (Porcine) 10,000 unit 05/05/21 14:59 Heparin 1,000 Units/Ml 10ml Vial (Telephone Clerk) IV 05/05/21 18:59 NEEDED PRN Emergency Box Credit Cashier Sodium Chloride 1,000 mls @ 25 mls/hr 05/05/21 15:00 Sod Chlor 0.9% 1000ml Bag IV 05/06/21 14:59 .Q25H YARON Midazolam HCl 1 mg 05/05/21 14:59 Midazolam 2mg/2ml Vial IV 05/06/21 14:59 Q3MINP PRN Sedation Midazolam HCl 1 mg 05/05/21 14:59 Midazolam Hcl 1mg/1ml 5ml Vial IV 05/06/21 14:59 Q3MINP PRN Sedation Naloxone HCl 0.4 mg 05/05/21 14:59 Naloxone 0.4mg/Ml Vial IV 05/06/21 14:59 Q5MINP PRN Decreased Respirations Nitroglycerin 800 mcg 05/05/21 14:59 Nitroglycerin 800mcg/8ml Syr (Telephone Clerk) IV 05/06/21 14:59 NEEDED PRN Emergency Box Credit Cashier Discontinued Medications Generic Name Dose Route Start Last Admin Trade Name Freq PRN Reason Stop Dose Admin Diphenhydramine HCl 50 mg 05/05/21 14:59 Diphenhydramine 50mg/Ml Vial IV 05/05/21 15:00 ONCE ONE Heparin Sodium/Sodium Chloride 3,000 unit 05/05/21 14:59 Heparin 1,000 Units/500ml Ns (Telephone Clerk) IV 05/05/21 15:00 ONCE ONE Lidocaine HCl 20 ml 05/05/21 14:59 Lidocaine 1% 10ml Mdv IJ 05/05/21 15:00 ONCE ONE Lidocaine HCl 20 ml 05/05/21 14:59 Lidocaine 1% 5ml Pf Vial IJ 05/05/21 15:00 ONCE ONE Verapamil HCl 2.5 mg 05/05/21 14:59 Verapamil 2.5mg/Ml 2ml Vial IV 05/05/21 15:00 ONCE ONE ORDERS Category Date Time Status XR chest portable Stat Exams 05/05/21 14:56 Taken Brain Natriuretic Peptide Stat Lab 05/05/21 14:49 Received Complete Blood Count Auto Diff Stat Lab 05/05/21 14:49 Received Comprehensive Metabolic Panel Stat Lab 05/05/21 14:49 Received PTT [Activated Partial Thrombo Time] Stat Lab 05/05/21 14:49 Received Prothrombin Time INR Stat Lab 05/05/21 14:49 Received Rapid PCR Covid and Flu A/B Stat Lab 05/05/21 14:49 Received Trop I [Troponin I] Stat Lab 05/05/21 14:49 Received Troponin I Q3H Lab
[2021-05-05 15:14] LABS: Basophils # 0.2 K/mm3 (0-0.2); Basophils % 1.6 % (0.1-2.0); Eosinophils # 0.7 K/mm3 (0.0-0.4); Eosinophils % 5.9 % (0.1-12.0); Hematocrit 49.1 % (42.0-52.0); Hemoglobin 16.9 g/dL (14.1-18.0); Lymphocytes # 3.8 K/mm3 (0.7-4.5); Lymphocytes % 30.2 % (10-50); Mean Corpuscular HGB Conc 34.4 g/dL (31.8-35.4); Mean Corpuscular Hemoglobin 30.3 pg (27.0-31.2); Mean Corpuscular Volume 88.2 fl (80-94); Monocytes % 7.5 % (1.7-9.3); Neutrophils # 6.9 K/mm3 (1.8-7.8); Neutrophils % 54.7 % (37.0-80.0); Platelet Count 440 K/mm3 (142-424); Red Blood Count 5.57 M/mm3 (4.60-6.20); Red Cell Distribution Width 13.4 % (11.5-17.5); White Blood Count 12.6 K/mm3 (4.8-10.8)
[2021-05-05 15:22] LABS: INR 0.89 (0.9-1.1); Prothrombin Time 10.1 seconds (10.1-12.5)
[2021-05-05 15:24] LABS: Chloride 97 mmol/L (98-107); Potassium 3.9 mmoL/L (3.5-5.1); Sodium 132 mmol/L (136-145)
[2021-05-05 15:26] LABS: Blood Urea Nitrogen 11 mg/dl (9-20); Creatinine Clearance Estimated 179 mL/min (50-200); Estimated Glomerular Filt Rate 90 ml/min (>60); GFR (African American) 109 ML/MIN (>60)
[2021-05-05 15:27] LABS: Alanine Aminotransferase 38 U/L (12-78); Albumin Level 4.5 g/dl (3.5-5.0); Alkaline Phosphatase 84 U/L (38-126); Anion Gap 11.9 mEq/L (5-15); Aspartate Amino Transferase 39 U/L (17-59); Bilirubin,Total 1.6 mg/dl (0.2-1.3); Carbon Dioxide 27 mmol/L (22.0-30.0)
[2021-05-05 15:30] LABS: Albumin/Globulin Ratio 1.5 (1.1-1.8); Total Protein,Serum 7.5 g/dl (6.3-8.2)
[2021-05-05 15:36] LABS: NT Pro Brain Natriuretic Pep. 115 pg/mL (0-125)
[2021-05-05 15:45] LABS: Troponin I 1.84 ng/ml (0.00-0.034)
--- NOTE | 2021-05-05 15:46 | PC.NURSE ---
lab called with critical troponin notified ER and called to label pinker spoke with mikie awan to notify her of critical troponin as pt has been transferred to label [facility]
[2021-05-05 15:54] LABS: Calcium 9.3 mg/dl (8.4-10.2); Glucose 172 mg/dl (74-100)
--- NOTE | 2021-05-05 19:56 | PC.NURSE ---
Pt c/o of soa, and a flutter feeling, but denied chest pain or pressure. BP has been slightly elevated. HR regular rate and rhythm. This RN did make Dr. Espinosa aware and he ordered captipril per mar x 1 PRN. Pt's VSS at this time. radial band is in place to R wrist at this time. Report given to Renata Hoff RN.
--- NOTE | 2021-05-05 20:20 | HMH.HP ---
*Admission Date: 05/05/21 *Chief complaint: abdominal pain, chest pain *History of present illness: Mr. Villanueva is a pleasant 45-year-old gentleman who was seen in our office earlier today. He had not been seen in almost 2-1/2 years. Came in because of numerous concerns including right lower quadrant pain for a few months, weight gain, and an episode of chest pain earlier this week. Reported the pain in his abdomen had been progressive for the past few weeks. Worse after eating. No constipation or emesis but was having loose stools. No fever or sweats. Diarrhea longstanding 2-3 times a week. He additionally complained of a single episode of chest pain that occurred earlier this week. States that it was very intense in his chest, burning and pressure-like. Happened after breakfast. Ate an entire roll of Tums through the day and drank some milk with no improvement. Took some aspirin earlier in the day with the assumption that if his pain got better he would go to the hospital because it meant it might be related to his heart. His pain did not improve until later that day and resolved completely after going to sleep with no recurrence on Saturday or . Risk factors for coronary artery disease include tobacco use, pack a day for almost 20 years. He does not drink. EKG was obtained in the office showing Q wave in lead III and aVF. No ST abnormalities. From the office he was sent for labs and a CAT scan of his belly because of significant abdominal pain on exam. Labs returned after his CAT scan was performed and showed an elevated troponin of 1.9. He was contacted and informed to come back to the ER out of concern for NSTEMI or impending ACS. Cardiology was contacted, patient returned to the ER and Catheterization Laboratory Technician was activated. Noted to have significant stenosis and a dominant right coronary. Stent placed with improvement in flow. Overall tolerated procedure well. Seen after arriving to the floor. Patient's at bedside. Questions answered. Had discussion about smoking cessation. [facility] History I have reviewed the patient's past medical history: Yes Medical History: Denies:: Diabetes Mellitus Type 1, Diabetes Mellitus Type 2, Seizures *Have you ever received a pneumonia vaccine?: No *Have you received a flu vaccine this season?: No Other Medical History: Denies: Blood Transfusion Reaction Laterality Cases: Right: ACL Repair, Arthroscopy Knee, Bilateral: Tonsillectomy Amputation: No Fractures: No - *Social History Smoking Status: Current every day smoker Tobacco Type: cigarettes # Packs/Day (cigarettes): 1 Alcohol Intake: current Alcohol Intake Frequency:: holidays/special occasions only Substance Use Type: denies use *Occupational Status:: employed Housing: house Household Members: other *Travel in the last 8 weeks: None Family Hx:: No significant family history Review of Systems - Review of Systems Review of systems:: pertinent systems reviewed and negative unless documented below (Of systems) - *Neurologic Denies headache(s) Meds Home Medications Medication Instructions Recorded Confirmed Type No Known Home Medications 05/05/21 05/05/21 History Allergies Allergy/AdvReac Type Severity Reaction Status Date / Time acetaminophen Allergy Unknown Verified 09/18/19 09:07 promethazine Allergy Unknown NA-HALLUCIN Verified 09/18/19 09:07 ATIONS Exam Vital signs and Labs for Last 24 Hours: Temp Pulse Resp BP Pulse Ox 98.6 F 83 22 155/96 H 95 05/05/21 15:10 05/05/21 19:00 05/05/21 19:00 05/05/21 19:00 05/05/21 19:00 Laboratory Results - last 24 hr 05/05/21 14:49: WBC 12.6 H, RBC 5.57, Hgb 16.9, Hct 49.1, MCV 88.2, MCH 30.3, MCHC 34.4, RDW 13.4, Plt Count 440 H, MPV 7.0 L, Neut % (Auto) 54.7, Lymph % (Auto) 30.2, [place] % (Auto) 7.5, Eos % (Auto) 5.9, Baso % (Auto) 1.6, Neut # (Auto) 6.9, Lymph # (Auto) 3.8, [place] # (Auto) 1.0, Eos # (Auto) 0.7 H, Baso # (Auto) 0.2 05/05/21 14:49: PT 10
[2021-05-06] VITALS: BP 111/66; PULSE 100; PULSE 90; RESP 16; TEMP 36.9; O2SAT 94
[2021-05-06 04:00] VITALS: BP 145/72; PULSE 80; PULSE 91; RESP 22; TEMP 36.6; O2SAT 100
[2021-05-06 05:09] VITALS: BMI 37.2
[2021-05-06 06:37] LABS: Basophils # 0.2 K/mm3 (0-0.2); Basophils % 1.4 % (0.1-2.0); Eosinophils # 0.7 K/mm3 (0.0-0.4); Eosinophils % 6.4 % (0.1-12.0); Hematocrit 46.9 % (42.0-52.0); Hemoglobin 15.8 g/dL (14.1-18.0); Lymphocytes # 3.5 K/mm3 (0.7-4.5); Lymphocytes % 32.6 % (10-50); Mean Corpuscular HGB Conc 33.7 g/dL (31.8-35.4); Mean Corpuscular Hemoglobin 29.9 pg (27.0-31.2); Mean Corpuscular Volume 88.6 fl (80-94); Mean Platelet Volume 6.8 fl (7.4-10.4); Neutrophils # 5.4 K/mm3 (1.8-7.8); Neutrophils % 50.6 % (37.0-80.0); Platelet Count 375 K/mm3 (142-424); Red Blood Count 5.29 M/mm3 (4.60-6.20); Red Cell Distribution Width 13.5 % (11.5-17.5); White Blood Count 10.6 K/mm3 (4.8-10.8)
[2021-05-06 07:00] LABS: Chloride 102 mmol/L (98-107)
[2021-05-06 07:01] LABS: Potassium 4.1 mmoL/L (3.5-5.1); Sodium 133 mmol/L (136-145)
[2021-05-06 07:03] LABS: Blood Urea Nitrogen 11 mg/dl (9-20); Creatinine Clearance Estimated 206 mL/min (50-200); Estimated Glomerular Filt Rate 104 ml/min (>60); GFR (African American) 125 ML/MIN (>60)
[2021-05-06 07:04] LABS: Anion Gap 9.1 mEq/L (5-15); Calcium 8.4 mg/dl (8.4-10.2); Carbon Dioxide 26 mmol/L (22.0-30.0); Chol/HDL Ratio 6.3 (1-3.5); Cholesterol 170 mg/dl (140-200); Glucose 107 mg/dl (74-100); HDL Cholesterol 27 mg/dl (40-60); Triglycerides 165 mg/dl (30-150); VLDL Cholesterol 33 mg/dL (0-40)
[2021-05-06 07:15] LABS: Direct LDL Cholesterol 106.48 mg/dL (100-129)
--- NOTE | 2021-05-06 07:32 | HMH.DCSUM ---
General - General Admission date:: 05/05/21 Discharge date: 05/06/21 HPI HPI: Mr. Villanueva is a pleasant 45-year-old gentleman who was seen in our office earlier today. He had not been seen in almost 2-1/2 years. Came in because of numerous concerns including right lower quadrant pain for a few months, weight gain, and an episode of chest pain earlier this week. Reported the pain in his abdomen had been progressive for the past few weeks. Worse after eating. No constipation or emesis but was having loose stools. No fever or sweats. Diarrhea longstanding 2-3 times a week. He additionally complained of a single episode of chest pain that occurred earlier this week. States that it was very intense in his chest, burning and pressure-like. Happened after breakfast. Ate an entire roll of Tums through the day and drank some milk with no improvement. Took some aspirin earlier in the day with the assumption that if his pain got better he would go to the hospital because it meant it might be related to his heart. His pain did not improve until later that day and resolved completely after going to sleep with no recurrence on Saturday or . Risk factors for coronary artery disease include tobacco use, pack a day for almost 20 years. He does not drink. EKG was obtained in the office showing Q wave in lead III and aVF. No ST abnormalities. From the office he was sent for labs and a CAT scan of his belly because of significant abdominal pain on exam. Labs returned after his CAT scan was performed and showed an elevated troponin of 1.9. He was contacted and informed to come back to the ER out of concern for NSTEMI or impending ACS. Cardiology was contacted, patient returned to the ER and Postal Supervisor was activated. Noted to have significant stenosis and a dominant right coronary. Stent placed with improvement in flow. Overall tolerated procedure well. Seen after arriving to the floor. Patient's at bedside. Questions answered. Had discussion about smoking cessation. Hospital Course Hospital Course: Mr. Villanueva was admitted for NSTEMI with elevated troponin. Taken to the Postal Supervisor and received a single drug-eluting stent in his dominant RCA. 0% occlusion achieved. Has been asymptomatic since procedure. Started on goal-directed therapy including lisinopril, DAPT, statin. Held beta-lidia at this time given patient's difficulty with handling the number of medications he is having to start along with his blood pressure control. Will reevaluate at follow-up with cardiology or primary care. Discussed benefits of smoking cessation. Patient will need close follow-up to address medication adherence, blood pressure regimen, treatment for cholesterol and evaluation of A1c obtained with labs prior to admission. Examined on day of discharge. Medically stable for discharge home. Close follow-up in the coming week Spent greater than 30 minutes in discharge counseling. Discussed medication adjustments, possible side effects, smoking cessation. Objective Vital signs: Temp Pulse Resp BP Pulse Ox 97.9 F 91 H 22 145/72 H 100 05/06/21 04:00 05/06/21 04:00 05/06/21 04:00 05/06/21 04:00 05/06/21 04:00 Narrative: - Constitutional no acute distress, obese - *Routine HEENT Exam Head: Present: normocephalic Eye: Present: EOMI, PERRL ENT: Present: mucous membranes moist - *Routine Neck Exam Present: supple. Absent: lymphadenopathy - *Routine Respiratory Exam Present: CTA bilaterally - *Routine Cardiovascular Exam Present: RRR - *Routine Abdominal Exam Present: soft, normoactive bowel sounds. Absent: tenderness - *Routine Extremities Exam Absent: cyanosis, clubbing, edema; right radial insertion site CDI, no thrill - *Routine Skin Exam Present: warm. Absent: rash - *Routine Neurological Exam Present: alert, oriented X3 Results Labs on day of discharge: Labs from last 24 hours 02
[2021-05-06 08:00] VITALS: BP 123/68; PULSE 89; RESP 18; TEMP 36.8; O2SAT 95
[2021-05-06 08:26] LABS: Hemoglobin A1C 6.2 % (4.0-6.0)
--- NOTE | 2021-05-06 09:26 | HMH.PHACLD ---
Iron Villanueva has received discharge medication counseling on the following medications: MD STARTED LISINOPRIL 10 MG DAILY, ASPIRIN 81 MG DAILY, ATORVASTATIN 40 MG HS, AND BRILINTA 90 MG BID. MD NOT STARTING BETA KATIE AT THIS TIME. CONCERNED PATIENT MAY NOT TOLERATE.
[2021-05-09 15:14] LABS: Tissue Transglutaminase IgA Ab <2 U/mL (0-3); Tissue Transglutaminase IgG Ab <2 U/mL (0-5)
== END 2021-05-06 10:03 | disposition home or self-care (01) | DRG 247 ==
LOC: ER 14:56 → CATHLAB 15:03 → 2ND 05-06 07:08
PROVIDERS: Admitting Provider Internal Medicine Adolescent Medicine; Emergency Provider Emergency Medicine; PCP Internal Medicine Adolescent Medicine; Referring Provider Internal Medicine; Visit Provider Internal Medicine Adolescent Medicine
PROC: B2111ZZ Fluoroscopy of Multiple Coronary Arteries using Low Osmolar Contrast (ICD-10-PCS; principal; 2021-05-05 15:00)
DX: I21.4 Non-ST elevation (NSTEMI) myocardial infarction (principal); E66.9 Obesity, unspecified; Z68.37 Body mass index [BMI] 37.0-37.9, adult; F17.210 Nicotine dependence, cigarettes, uncomplicated; I10 Essential (primary) hypertension
CPT/HCPCS: 36415; 71045; 80048; 80053; 80061; 83036; 83516; 83880; 84484; 85025; 85610; 85730; 92941; 93005; 93458; 99152; 99284; C1725; C1760; C1769; C1876; C9606; C9803; J1644; Q9967; U0003; U0005

== ENCOUNTER → 2021-05-08 10:45 | Outpatient (CLI) | payer OTHER, SELFPAY ==
[2021-05-08 11:10] LABS: Hematocrit 49.3 % (42.0-52.0); Hemoglobin 17.1 g/dL (14.1-18.0)
[2021-05-08 11:12] LABS: Blood Urea Nitrogen 11 mg/dl (9-20); Estimated Glomerular Filt Rate 80 ml/min (>60); GFR (African American) 97 ML/MIN (>60)
== END ==
PROVIDERS: Visit Provider Internal Medicine
DX: R06.02 Shortness of breath (principal); Z95.5 Presence of coronary angioplasty implant and graft
CPT/HCPCS: 36415; 82565; 84520; 85014; 85018

== ENCOUNTER 2021-05-19 13:00 | Outpatient (RCR) | payer OTHER, SELFPAY | END 2021-05-19 13:05 | disposition home or self-care (01) | LOC: PT 13:00 | PROVIDERS: Visit Provider Internal Medicine | DX: I25.10 Atherosclerotic heart disease of native coronary artery without angina pectoris (principal); Z95.5 Presence of coronary angioplasty implant and graft | CPT/HCPCS: 93798 ==

== ENCOUNTER 2021-05-27 00:10 | Emergency (ER) | payer OTHER, SELFPAY ==
[2021-05-27 00:11] VITALS: BP 110/61; PULSE 90; RESP 19; TEMP 36.7; O2SAT 99; BMI 37.5
[2021-05-27 00:16] VITALS: BMI 29.8
[2021-05-27 00:24] LABS: Microscopic, Urine URINE MICROSCOPIC (MICROSCOPIC)
[2021-05-27 00:26] LABS: Appearance,Urine CLEAR (Clear); Bilirubin,Urine Negative (Negative); Blood, Urine Negative (Negative); Color,Urine YELLOW (Yellow); Glucose,Urine (UA) Negative (Negative); Ketones,Urine Negative (Negative); Leukocyte Esterase,Urine Negative (Negative); Nitrate,Urine Negative (Negative); PH,Urine 6.5 (5.0-8.5); Protein,Urine Negative (Negative); Specific Gravity, Urine 1.025 (1.005-1.030); Urobilinogen,Urine 0.2 EU/dl (0.2)
--- NOTE | 2021-05-27 00:26 | CT_ITS ---
PROCEDURE INFORMATION: Exam: CT Abdomen And Pelvis Without Contrast Exam date and time: 05/27/2021 12:36 AM Age: 45 years old Clinical indication: Abdominal pain; Localized; Right lower quadrant (rlq); Additional info: Rlq pain TECHNIQUE: Imaging protocol: Computed tomography of the abdomen and pelvis without contrast. Radiation optimization: All CT scans at this facility use at least one of these dose optimization techniques: automated exposure control; mA and/or kV adjustment per patient size (includes targeted exams where dose is matched to clinical indication); or iterative reconstruction. COMPARISON: CT ABDOMEN PELVIS W CON 05/05/2021 1:21 PM FINDINGS: Lungs: The visualized lung bases are clear. Pleural spaces: There are no pleural effusions. Heart: The visualized portions of the heart are unremarkable. There is no evidence of pericardial fluid collections. Liver: There is diffuse decrease in hepatic parenchymal density consistent with fatty infiltration. Evaluation of the liver is limited without contrast but the liver is within normal limits for this noncontrast study. The Gallbladder and bile ducts: The gallbladder is contracted/decompressed. Pancreas: The pancreas is normal. Spleen: The spleen demonstrates punctate calcifications, consistent with remote granulomatous organism exposure. Adrenal glands: The adrenal glands are normal. Kidneys and ureters: The kidneys are normal. Stomach and bowel: There is a moderate degree of ingested material the stomach. Stomach is otherwise normal. Lack of gastrointestinal contrast limits evaluation of bowel. The colon is normal. Unopacified loops of small bowel are within range of normal.The duodenum is unremarkable. Appendix: A normal appendix is identified. Intraperitoneal space: There is no evidence of free intraperitoneal or pelvic fluid. There is no evidence of free intraperitoneal or pelvic fluid. Vasculature: The aorta demonstrates mild atherosclerotic calcification. Lymph nodes: No enlarged lymph nodes. Urinary bladder: The bladder is normal. Reproductive: The prostate demonstrates nonspecific parenchymal calcifications. Bones/joints: There is no evidence of acute fracture. The thoracolumbar spine demonstrates mild degenerative changes at multiple levels. Soft tissues: There is a nonobstructing left inguinal hernia. There is a tiny fat-containing umbilical hernia. Other findings: Evaluation is limited by the lack of intravenous contrast. IMPRESSION: 1. Fatty hepatic infiltration. 2. Small stable nonobstructing left inguinal hernia. 3. Tiny fat- containing umbilical hernia.
--- NOTE | 2021-05-27 00:29 | HMH.EDNVD ---
ED Disposition Clinical Impression: Abdominal pain Qualifiers: Abdominal location: right lower quadrant Qualified Code(s): R10.31 - Right lower quadrant pain Disposition: Home, Self-Care Condition on Discharge: Good Instructions: DI for Acute Abdominal Pain Additional Instructions: fluids and call pvcp for follow up Prescriptions: Ketorolac Tromethamine [Toradol 10mg tablet] 10 mg PO Q6HP PRN #10 tab MDD 40mg/day PRN Reason: Moderate To Severe Pain Transmission Status: Pending to Clinic [facility] Referrals: Hany Espinosa MD [Primary Care Provider] - - Critical Care Critical Care Time: No Attestation: On 05/27/21, the high probability of a clinically significant, sudden or life threatening deterioration of the following system(s) required my full and direct attention, intervention and personal management. The time I documented below is in addition to time spent performing reported procedures but includes the following listed in this critical care notation. Medical Decision Making - Medical Records Medical records reviewed: Yes: I reviewed the patient's medical records. - Kyle Inquiry Pt receiving controlled substance: No Vital Signs: 05/27/21 00:11 05/27/21 01:30 05/27/21 02:00 Temperature 98.1 F Temperature Source Oral Pulse Rate 72 72 Pulse Rate [Right] 90 Respiratory Rate 19 Blood Pressure 123/57 L 123/62 Blood Pressure [Right Arm] 110/61 Blood Pressure Mean [Right Arm] 77 02 Sat by Pulse Oximetry 99 97 96 Oxygen Delivery Method Room Air Room Air - Lab Data Lab results reviewed: Yes: I reviewed the patient's lab results. Lab Results 05/27/21 00:18: Urine Color Yellow, Urine Appearance Clear, Urine pH 6.5, Ur Specific L[place] 1.025, Urine Protein Negative, Urine Glucose (UA) Negative, Urine Ketones Negative, Urine Blood Negative, Urine Nitrate Negative, Urine Bilirubin Negative, Urine Urobilinogen 0.2, Ur Leukocyte Esterase Negative, Amorphous Sediment 1+ 05/27/21 00:23: WBC 11.3 H, RBC 5.22, Hgb 16.0, Hct 46.8, MCV 89.7, MCH 30.7, MCHC 34.3, RDW 14.4, Plt Count 426 H, MPV 7.8, Neut % (Auto) 46.7, Lymph % (Auto) 38.1, Petroleum % (Auto) 6.9, Eos % (Auto) 6.7, Baso % (Auto) 1.7, Neut # (Auto) 5.3, Lymph # (Auto) 4.3, Petroleum # (Auto) 0.8, Eos # (Auto) 0.8 H, Baso # (Auto) 0.2, ESR 3 05/27/21 00:23: Sodium 139, Potassium 4.0, Chloride 104, Carbon Dioxide 27, Anion Gap 12.0, BUN 14, Creatinine 0.90, Estimated Creat Clear 143, Estimated GFR 90, Est GFR ( Amer) 109, Glucose 137 H, Calcium 9.0, Total Bilirubin 0.8, AST 27, ALT 31, Alkaline Phosphatase 85, Troponin I < 0.01, C-Reactive Protein 2.0, Total Protein 6.9, Albumin 4.3, Globulin 2.6, Albumin/Globulin Ratio 1.7, Amylase 71, Lipase 45, Procalcitonin 0.053 Result diagrams: 05/27/21 00:23 05/27/21 00:23 Orders (Tests/Meds): ED MEDICATIONS Generic Name Dose Route Start Last Admin Trade Name Freq PRN Reason Stop Dose Admin Sodium Chloride 1,000 mls @ 999 mls/hr 05/27/21 00:30 05/27/21 00:25 Sod Chlor 0.9% 1000ml Bag IV 05/27/21 01:30 999 mls/hr .Q1H1M YARON Administration Sodium Chloride 8 ml 05/27/21 00:21 Sodium Chloride 0.9% 10ml Vial IV 06/26/21 00:20 NEEDED PRN dilute pepcid Discontinued Medications Generic Name Dose Route Start Last Admin Trade Name Freq PRN Reason Stop Dose Admin Famotidine 20 mg 05/27/21 00:21 05/27/21 00:26 Famotidine 20mg/2ml Vial IV 05/27/21 00:22 20 mg ONCE ONE Administration Ketorolac Tromethamine 30 mg 05/27/21 00:21 05/27/21 00:25 Ketorolac 30mg/Ml Vial IV 05/27/21 00:22 30 mg ONCE ONE Administration Metoclopramide HCl 10 mg 05/27/21 00:21 05/27/21 00:26 Metoclopramide Hcl 10mg/2ml Vial IVP 05/27/21 00:22 10 mg ONCE ONE Administration Ondansetron HCl 4 mg 05/27/21 00:21 05/27/21 00:25 Ondansetron 4mg/2ml Vial IV 05/27/21 00:22 4 mg ONCE ONE Administration ORDERS Category Date Time Status CT ab
[2021-05-27 00:30] LABS: Hematocrit 46.8 % (42.0-52.0); Mean Corpuscular HGB Conc 34.3 g/dL (31.8-35.4); Mean Corpuscular Hemoglobin 30.7 pg (27.0-31.2); Mean Corpuscular Volume 89.7 fl (80-94); Red Blood Count 5.22 M/mm3 (4.60-6.20); Red Cell Distribution Width 14.4 % (11.5-17.5); White Blood Count 11.3 K/mm3 (4.8-10.8)
[2021-05-27 00:31] LABS: Basophils # 0.2 K/mm3 (0-0.2); Basophils % 1.7 % (0.1-2.0); Eosinophils # 0.8 K/mm3 (0.0-0.4); Eosinophils % 6.7 % (0.1-12.0); Lymphocytes # 4.3 K/mm3 (0.7-4.5); Lymphocytes % 38.1 % (10-50); Mean Platelet Volume 7.8 fl (7.4-10.4); Monocytes # 0.8 K/mm3 (0.1-1.0); Monocytes % 6.9 % (1.7-9.3); Neutrophils # 5.3 K/mm3 (1.8-7.8); Neutrophils % 46.7 % (37.0-80.0); Platelet Count 426 K/mm3 (142-424)
[2021-05-27 00:40] LABS: Amorphous Sediment,Urine 1+ /lpf
[2021-05-27 00:43] LABS: Alanine Aminotransferase 31 U/L (12-78); Albumin Level 4.3 g/dl (3.5-5.0); Albumin/Globulin Ratio 1.7 (1.1-1.8); Alkaline Phosphatase 85 U/L (38-126); Amylase 71 U/L (30-110); Aspartate Amino Transferase 27 U/L (17-59); Bilirubin,Total 0.8 mg/dl (0.2-1.3); Blood Urea Nitrogen 14 mg/dl (9-20); Carbon Dioxide 27 mmol/L (22.0-30.0); Chloride 104 mmol/L (98-107); Creatinine Clearance Estimated 143 mL/min (50-200); Estimated Glomerular Filt Rate 90 ml/min (>60); GFR (African American) 109 ML/MIN (>60); Globulin 2.6 g/dL (1.3-3.2); Glucose 137 mg/dl (74-100); Lipase 45 U/L (23-300); Sodium 139 mmol/L (136-145); Total Protein,Serum 6.9 g/dl (6.3-8.2)
[2021-05-27 00:57] LABS: Troponin I < 0.01 ng/ml (0.00-0.034)
[2021-05-27 01:00] LABS: Erythrocyte Sedimentation Rate 3 mm/hr (0-15); Procalcitonin 0.053 ng/mL (0.0-2.0)
[2021-05-27 01:30] VITALS: BP 123/57; PULSE 72; O2SAT 97
[2021-05-27 02:00] VITALS: BP 123/62; PULSE 72; O2SAT 96
[2021-05-27 02:48] VITALS: BP 123/62; PULSE 72; RESP 18; TEMP 36.7; O2SAT 98
== END 2021-05-27 02:51 | disposition home or self-care (01) ==
PROVIDERS: Emergency Provider Emergency Medicine; PCP Internal Medicine Adolescent Medicine
DX: R10.31 Right lower quadrant pain (principal); R11.0 Nausea; I10 Essential (primary) hypertension; Z87.891 Personal history of nicotine dependence; Z79.899 Other long term (current) drug therapy
CPT/HCPCS: 74176; 80053; 81001; 82150; 83690; 84145; 84484; 85025; 85651; 86140; 96365; 96375; 99284; J2405

== ENCOUNTER → 2021-06-02 11:00 | Outpatient (CLI) | payer OTHER, SELFPAY ==
[2021-06-02 11:08] LABS: Microscopic, Urine URINE MICROSCOPIC (MICROSCOPIC)
[2021-06-02 11:32] LABS: Appearance,Urine CLEAR (Clear); Bilirubin,Urine Negative (Negative); Blood, Urine Negative (Negative); Color,Urine YELLOW (Yellow); Glucose,Urine (UA) Negative (Negative); Ketones,Urine Negative (Negative); Leukocyte Esterase,Urine Negative (Negative); Nitrate,Urine Negative (Negative); PH,Urine 6.5 (5.0-8.5); Protein,Urine Negative (Negative); Urobilinogen,Urine 0.2 EU/dl (0.2)
[2021-06-02 13:04] LABS: Squamous Epithelial Cell,Urine Occasional #/hpf (0-5)
[2021-06-02 14:49] LABS: Alanine Aminotransferase 28 U/L (12-78); Alkaline Phosphatase 74 U/L (38-126); Aspartate Amino Transferase 22 U/L (17-59); Bilirubin,Direct 0.3 mg/dl (0.0-0.4); Bilirubin,Indirect 0.8 mg/dL (0.0-0.9); Bilirubin,Total 1.1 mg/dl (0.2-1.3); Bilirubin,Unconjugated 0.8 mg/dL (0.0-1.1)
[2021-06-02 14:50] LABS: Chol/HDL Ratio 3.9 (1-3.5); Cholesterol 120 mg/dl (140-200); HDL Cholesterol 31 mg/dl (40-60); Total Protein,Serum 6.3 g/dl (6.3-8.2); Triglycerides 162 mg/dl (30-150); VLDL Cholesterol 32 mg/dL (0-40)
[2021-06-02 15:01] LABS: Direct LDL Cholesterol 64.26 mg/dL (100-129)
== END ==
PROVIDERS: Internal Medicine; Visit Provider Surgery
DX: N20.0 Calculus of kidney (principal); I10 Essential (primary) hypertension; E78.5 Hyperlipidemia, unspecified; I21.4 Non-ST elevation (NSTEMI) myocardial infarction; I25.10 Atherosclerotic heart disease of native coronary artery without angina pectoris; Z95.5 Presence of coronary angioplasty implant and graft
CPT/HCPCS: 80061; 80076; 81001

== ENCOUNTER 2021-07-03 10:04 | Day surgery (SDC) | payer OTHER, SELFPAY ==
[2021-07-03] VITALS (13 sets, daily range): BP systolic 106–168; BP diastolic 62–101; PULSE 70–93; RESP 16–25; TEMP 36.9; O2SAT 90–98; BMI 36.6
--- NOTE | 2021-07-03 | CT_ITS ---
FINAL REPORT TECHNIQUE: Axial CT images were performed through the head. Coronal reformatted images were submitted. This study was performed with techniques to keep radiation doses as low as reasonably achievable (ALARA). Individualized dose reduction techniques using automated exposure control or adjustment of mA and/or kV according to the patient's size were employed. CLINICAL HISTORY: AMS FINDINGS: There is contrast present from CTA performed earlier today. Therefore, subarachnoid hemorrhage cannot be excluded. The ventricles are normal in size. There is no mass or edema identified. There is no abnormal extra-axial fluid seen. The sinuses are well aerated. IMPRESSION: Cannot assess for subarachnoid hemorrhage due to contrast from previous exam. Otherwise, no acute intracranial abnormality. Reviewed, Interpreted and Dictated by Zackary Morillo MD Transcribed by Elvira Hilton Authenticated by Zackary Morillo MD on 07/03/2021 01:28:57 PM [facility]
--- NOTE | 2021-07-03 | IR_ITS ---
APPROVED REPORT [facility] Biologist: MADDISON Pastrana RT (R) PROCEDURES Left heart catheterization Left ventriculogram Selective coronary angiogram INDICATION Unstable angina, Known coronary artery disease, Recent non-STEMI, Clinical history: 45-year-old gentleman with recent non-ST elevation myocardial infarction who awoke this morning with chest pressure and burning arm pain. Patient presented to the emergency department initially had very subtle inferolateral ST depression with a subsequent EKG demonstrating subtle inferolateral ST elevation less than 0.5 mm. Patient was experiencing impending doom and felt as though he was going to today. Specifically he informed his he was knocking to live the rest of the day. Because the dynamic EKG abnormalities and known ischemic heart disease with ongoing symptoms patient was immediately brought to the [facility] for diagnostic angiography Informed consent was obtained prior to the procedure. COMPLICATIONS NONE Estimated Blood Loss: LESS THAN 10 ML TECHNIQUE One percent lidocaine used to anesthetize the right anterior aspect of the wrist. The right radial artery was accessed via the Seldinger technique. A 6 Mauritanian sheath was placed in the right radial artery. 2.5 mg of verapamil, 800 mcg of nitroglycerin, 1mg Lidocaine and 5000 U Heparin were given through the arterial sheath. The papa catheter was also used to perform left heart catheterization, left ventriculogram and selective coronary angiogram. At the end of the procedure the sheath was removed good hemostasis was achieved using Traclet band, patient was transferred to the postop holding area in stable condition. ANGIOGRAPHIC RESULTS The left main artery Normal The left anterior descending artery Mild proximal and mid vessel 10% luminal regularities accompanied by FRANCIA II flow with initial angiogram followed by FRANCIA-3 flow with subsequent angiography The circumflex artery Nondominant with 10% luminal irregularities. FRANCIA II flow initially present followed by FRANCIA-3 flow with subsequent angiography The right coronary artery Large dominant with slow FRANCIA II flow on initial angiogram followed by FRANCIA-3 flow with subsequent angiography. There is a proximal 10% luminal irregularity with widely patent mid and distal stents The PAVON ventriculogram reveals Normal 65% The left ventricular end-diastolic pressure Severely elevated at 30 mmHg IMPRESSION Widely patent stents in the dominant right coronary artery Slow flow down all 3 coronary arteries consistent with significant endothelial dysfunction which is likely a combination of elevated LVEDP as well as microvascular disease Normal ejection fraction PLAN 1. Continue standard therapy for ischemic heart disease 2. Patient will be started on Imdur 30 mg daily for endothelial dysfunction 3. Low-dose diuretics will be started to lower LVEDP which is contributing to the endothelial dysfunction and low coronary artery perfusion pressures 4. Consider treatment of anxiety and possible depression disorder following non-ST elevation myocardial infarction from the last few months 5. Because of patient's impending doom and feeling as though he was going to today I feel obligated to perform a pulmonary artery CTA to evaluate for possible pulmonary embolism. Electronically signed by : Charlie Herrmann MD 07/03/2021 12:12:42
--- NOTE | 2021-07-03 10:04 | ECG_ITS ---
APPROVED REPORT Exam: Resting ECG HR:81 bpm ECG Measurements Heart Rate 81 AXES AL 154 P 69 QRSd 95 QRS 65 QT 365 T 57 QTc 402 Conclusion SINUS RHYTHM NORMAL ECG UNCONFIRMED REPORT Electronically signed by : Edward Valderrama MD 07/06/2021 08:10:13
--- NOTE | 2021-07-03 10:16 | HMH.EDGENADL ---
ED Disposition Clinical Impression: Angina at rest Disposition: Still a Patient Condition on Discharge: Undetermined - Critical Care Critical Care Time: No Attestation: On 07/03/21, the high probability of a clinically significant, sudden or life threatening deterioration of the following system(s) required my full and direct attention, intervention and personal management. The time I documented below is in addition to time spent performing reported procedures but includes the following listed in this critical care notation. Medical Decision Making - Medical Records Medical records reviewed: Yes: I reviewed the patient's medical records. - Kyle Inquiry Pt receiving controlled substance: No Vital Signs: 07/03/21 10:06 07/03/21 10:30 07/03/21 10:31 Temperature 98.5 F Temperature Source Oral Pulse Rate 93 H 83 Pulse Rate [Right] 89 Respiratory Rate 16 25 H 22 Blood Pressure 119/77 119/77 Blood Pressure [Right Arm] 168/101 H Blood Pressure Mean 91 Blood Pressure Mean [Right Arm] 123 Blood Pressure Source Automatic Cuff Blood Pressure Source [Right Arm] Automatic Cuff Blood Pressure Position Sitting Blood Pressure Position [Right Arm] Sitting 02 Sat by Pulse Oximetry 96 95 96 Oxygen Delivery Method Room Air Room Air Room Air - Lab Data Lab results reviewed: Yes: I reviewed the patient's lab results. Lab Results 07/03/21 10:10: WBC 9.4, RBC 5.20, Hgb 15.7, Hct 44.5, MCV 85.5, MCH 30.2, MCHC 35.3, RDW 13.3, Plt Count 397, MPV 6.7 L, Neut % (Auto) 54.2, Lymph % (Auto) 31.4, Nicholas % (Auto) 7.2, Eos % (Auto) 5.7, Baso % (Auto) 1.5, Neut # (Auto) 5.1, Lymph # (Auto) 2.9, Nicholas # (Auto) 0.7, Eos # (Auto) 0.5 H, Baso # (Auto) 0.1 07/03/21 10:10: Sodium 136, Potassium 4.0, Chloride 104, Carbon Dioxide 25, Anion Gap 11.0, BUN 12, Creatinine 0.80, Estimated Creat Clear 209, Estimated GFR 104, Est GFR ( Amer) 125, Glucose 204 H, Calcium 9.6, Troponin I < 0.01 07/03/21 10:10: Magnesium 1.6, NT-Pro-B Natriuret Pep 49.8, TSH 2.30, Thyroxine (T4) 10.6 07/03/21 10:10: D-Dimer 0.54 H 07/03/21 10:57: SARS-CoV-2 (PCR) Not detected, Influenza A Untype (PCR) Not detected, Influenza Type B (PCR) Not detected Result diagrams: 07/03/21 10:10 07/03/21 10:10 Orders (Tests/Meds): ED MEDICATIONS Discontinued Medications Generic Name Dose Route Start Last Admin Trade Name Freq PRN Reason Stop Dose Admin Aspirin 324 mg 07/03/21 10:39 07/03/21 10:47 Aspirin 81mg Chewable Tablet PO 07/03/21 10:40 324 mg ONCE ONE Administration Diphenhydramine HCl 50 mg 07/03/21 11:30 07/03/21 11:43 Diphenhydramine 50mg/Ml Vial IV 07/03/21 11:31 50 mg ONCE ONE Administration Fentanyl Citrate 25 mcg 07/03/21 11:30 07/03/21 11:59 Fentanyl 100mcg/2ml Vial IV 07/04/21 11:30 75 mcg Q3MINP PRN Administration Moderate to Severe Pain Fentanyl Citrate 50 mcg 07/03/21 11:30 Fentanyl 100mcg/2ml Vial IV 07/04/21 11:30 Q3MINP PRN Moderate to Severe Pain Fentanyl Citrate 25 mcg 07/03/21 11:30 Fentanyl 250mcg/5ml Vial IV 07/04/21 11:30 Q3MINP PRN Moderate to Severe Pain Fentanyl Citrate 50 mcg 07/03/21 11:30 Fentanyl 250mcg/5ml Vial IV 07/04/21 11:30 Q3MINP PRN Moderate to Severe Pain Flumazenil 0.2 mg 07/03/21 11:30 Flumazenil 0.1mg/Ml 5ml Vial IV 07/03/21 23:00 NEEDED PRN Sedation Heparin Sodium (Porcine) 10,000 unit 07/03/21 11:30 07/03/21 11:44 Heparin 1,000 Units/Ml 10ml Vial (Sales Program Coordinator) IV 07/03/21 15:30 5,000 unit NEEDED PRN Administration [facility] [employer] Group Leader Heparin Sodium/Sodium Chloride 3,000 unit 07/03/21 11:30 07/03/21 11:44 Heparin 1,000 Units/500ml Ns (Sales Program Coordinator) IV 07/03/21 11:31 3,000 unit ONCE ONE Administration Sodium Chloride 1,000 mls @ 25 mls/hr 07/03/21 11:30 07/03/21 11:44 Sod Chloride 0.9% 500ml Bag IV 07/04/21 11:30 25 mls/hr .Q25H YARON Administration I
--- NOTE | 2021-07-03 10:17 | XR_ITS ---
FINAL REPORT TECHNIQUE: Chest PA & Lateral CLINICAL HISTORY: chest tightness, pressure, hx heart attack with stent placement 2 months ago COMPARISON: May 05, 2021 FINDINGS: 2 views of the chest were performed. The heart size is normal. The mediastinum is within normal limits. There is no acute cardiopulmonary process. There are no pleural effusions. There is no pneumothorax. The bony thorax appears intact. IMPRESSION: No acute cardiopulmonary process. Reviewed, Interpreted and Dictated by Zackary Morillo MD Transcribed by Christian Dominguez Authenticated by Zackary Morillo MD on 07/03/2021 12:16:02 PM [facility]
--- NOTE | 2021-07-03 10:33 | PC.NURSE ---
ED MD at
[2021-07-03 10:38] LABS: Basophils # 0.1 K/mm3 (0-0.2); Basophils % 1.5 % (0.1-2.0); Eosinophils # 0.5 K/mm3 (0.0-0.4); Eosinophils % 5.7 % (0.1-12.0); Hematocrit 44.5 % (42.0-52.0); Hemoglobin 15.7 g/dL (14.1-18.0); Lymphocytes # 2.9 K/mm3 (0.7-4.5); Lymphocytes % 31.4 % (10-50); Mean Corpuscular HGB Conc 35.3 g/dL (31.8-35.4); Mean Corpuscular Hemoglobin 30.2 pg (27.0-31.2); Mean Corpuscular Volume 85.5 fl (80-94); Mean Platelet Volume 6.7 fl (7.4-10.4); Monocytes # 0.7 K/mm3 (0.1-1.0); Monocytes % 7.2 % (1.7-9.3); Neutrophils # 5.1 K/mm3 (1.8-7.8); Neutrophils % 54.2 % (37.0-80.0); Platelet Count 397 K/mm3 (142-424); Red Cell Distribution Width 13.3 % (11.5-17.5); White Blood Count 9.4 K/mm3 (4.8-10.8)
[2021-07-03 10:40] LABS: Chloride 104 mmol/L (98-107); Sodium 136 mmol/L (136-145)
--- NOTE | 2021-07-03 10:41 | PC.NURSE ---
patient reports no needs at this time; spouse at BS; call light within reach
--- NOTE | 2021-07-03 10:41 | ECG_ITS ---
APPROVED REPORT Exam: Resting ECG HR:80 bpm ECG Measurements Heart Rate 80 AXES TX 162 P 71 QRSd 101 QRS 63 QT 358 T 55 QTc 393 Conclusion SINUS RHYTHM NORMAL ECG UNCONFIRMED REPORT Electronically signed by : Edward Valderrama MD 07/06/2021 08:10:00
[2021-07-03 10:43] LABS: Blood Urea Nitrogen 12 mg/dl (9-20); Calcium 9.6 mg/dl (8.4-10.2); Carbon Dioxide 25 mmol/L (22.0-30.0); Creatinine Clearance Estimated 209 mL/min (50-200); Estimated Glomerular Filt Rate 104 ml/min (>60); GFR (African American) 125 ML/MIN (>60); Glucose 204 mg/dl (74-100)
--- NOTE | 2021-07-03 10:51 | PC.NURSE ---
Dr. Herrmann in ER speaking with ER MD about pt.
--- NOTE | 2021-07-03 10:52 | PC.NURSE ---
Dr. Herrmann speaking with ER MD and going to bedside at this time
--- NOTE | 2021-07-03 10:55 | PC.NURSE ---
Jocelyn Metz RN at BS
--- NOTE | 2021-07-03 10:56 | PC.NURSE ---
notified lab staff of new orders added on pt.
[2021-07-03 10:57] LABS: Troponin I < 0.01 ng/ml (0.00-0.034)
--- NOTE | 2021-07-03 10:59 | PC.NURSE ---
Covid swab sent to lab; patient is undressing at this time
--- NOTE | 2021-07-03 11:00 | PC.NURSE ---
Dr. Herrmann at bedside and advised he would take the patient to the cardiovascular lab director in approx. 15 mins. Gave belongings bag and instructed the patient to get undressed and I would be back with consent for signature. PT medicated per MAR at this time.
[2021-07-03 11:04] LABS: Coronavirus 19, PCR Not Detected (NotDetected); Influenza A, PCR Not Detected (NotDetected); Influenza B, PCR Not Detected (NotDetected)
--- NOTE | 2021-07-03 11:08 | PC.NURSE ---
mikie pardo from laborer cutting tool at
[2021-07-03 11:11] LABS: Magnesium 1.6 mg/dl (1.6-2.3)
--- NOTE | 2021-07-03 11:12 | PC.NURSE ---
Gave report to ZANA Torres. Pt to culture media laboratory assistant in w/c. Notified registration
[2021-07-03 11:16] LABS: D-Dimer 0.54 ug/mL (0.0-0.5)
[2021-07-03 11:23] LABS: NT Pro Brain Natriuretic Pep. 49.8 pg/mL (0-125)
[2021-07-03 11:30] LABS: T4 (Thyroxine) 10.6 ug/dl (5.53-11.0)
--- NOTE | 2021-07-03 12:25 | CT_ITS ---
FINAL REPORT TECHNIQUE: Postcontrast axial images of the chest were performed in a CTA protocol. This study was performed with techniques to keep radiation doses as low as reasonably achievable, (ALARA). Individualized dose reduction technique using automated exposure control or adjustment of mA and/or kV according to the patient's size were employed. CLINICAL HISTORY: embolism FINDINGS: The heart is normal in size. No adenopathy is identified. No pleural or pericardial effusion is identified. The thoracic aorta is normal in caliber with no focal aneurysm or dissection identified. Ascending aorta measures 3.8 cm. There is no filling defect to suggest pulmonary embolism. There is mild bibasilar atelectasis. No lung infiltrate or mass is identified. The images of the upper abdomen are unremarkable. IMPRESSION: No evidence for PE on this exam. Mild bibasilar atelectasis. Reviewed, Interpreted and Dictated by Zackary Morillo MD Transcribed by Elvira Hilton Authenticated by Zackary Morillo MD on 07/03/2021 01:20:57 PM [facility]
== END 2021-07-03 15:28 | disposition home or self-care (01) ==
LOC: ER 10:53 → CATHLAB 11:10
PROVIDERS: Emergency Provider Emergency Medicine; PCP Internal Medicine Adolescent Medicine; Visit Provider Internal Medicine
DX: I25.10 Atherosclerotic heart disease of native coronary artery without angina pectoris (principal); Z95.5 Presence of coronary angioplasty implant and graft; R07.9 Chest pain, unspecified; Z79.899 Other long term (current) drug therapy; Z87.891 Personal history of nicotine dependence; I25.2 Old myocardial infarction; I10 Essential (primary) hypertension
CPT/HCPCS: 70450; 71046; 71275; 80048; 83735; 83880; 84436; 84443; 84484; 85025; 85378; 93005; 93458; 99152; 99285; C1725; C1760; C1769; C9803; J1644; Q9967; U0003; U0005

== ENCOUNTER → 2021-08-10 08:34 | Outpatient (CLI) | payer OTHER, SELFPAY ==
[2021-08-10 09:17] LABS: Basophils # 0.4 K/mm3 (0-0.2); Basophils % 4.3 % (0.1-2.0); Eosinophils # 0.5 K/mm3 (0.0-0.4); Eosinophils % 5.7 % (0.1-12.0); Lymphocytes # 2.7 K/mm3 (0.7-4.5); Lymphocytes % 31.9 % (10-50); Mean Corpuscular HGB Conc 33.3 g/dL (31.8-35.4); Mean Corpuscular Hemoglobin 30.3 pg (27.0-31.2); Mean Platelet Volume 7.4 fl (7.4-10.4); Monocytes # 0.6 K/mm3 (0.1-1.0); Monocytes % 7.3 % (1.7-9.3); Neutrophils # 4.7 K/mm3 (1.8-7.8); Platelet Count 422 K/mm3 (142-424); Red Blood Count 4.94 M/mm3 (4.60-6.20); Red Cell Distribution Width 14.4 % (11.5-17.5); White Blood Count 8.6 K/mm3 (4.8-10.8)
[2021-08-10 09:53] LABS: Alanine Aminotransferase 31 U/L (12-78); Albumin Level 4.1 g/dl (3.5-5.0); Alkaline Phosphatase 84 U/L (38-126); Anion Gap 14.5 mEq/L (5-15); Aspartate Amino Transferase 24 U/L (17-59); Bilirubin,Indirect 1.4 mg/dL (0.0-0.9); Bilirubin,Total 1.4 mg/dl (0.2-1.3); Bilirubin,Unconjugated 1.6 mg/dL (0.0-1.1); Blood Urea Nitrogen 14 mg/dl (9-20); Calcium 9.4 mg/dl (8.4-10.2); Carbon Dioxide 28 mmol/L (22.0-30.0); Chloride 101 mmol/L (98-107); Chol/HDL Ratio 4.2 (1-3.5); Cholesterol 117 mg/dl (140-200); Estimated Glomerular Filt Rate 72 ml/min (>60); GFR (African American) 87 ML/MIN (>60); Glucose 138 mg/dl (74-100); HDL Cholesterol 28 mg/dl (40-60); Potassium 4.5 mmoL/L (3.5-5.1); Sodium 139 mmol/L (136-145); Total Protein,Serum 6.6 g/dl (6.3-8.2); Triglycerides 193 mg/dl (30-150); VLDL Cholesterol 39 mg/dL (0-40)
[2021-08-10 10:03] LABS: Direct LDL Cholesterol 50.96 mg/dL (100-129)
[2021-08-10 10:10] LABS: Free T4 (Free Thyroxine) 0.89 ng/dl (0.78-2.19)
[2021-08-10 10:23] LABS: Thyroid Stimulating Hormone 2.63 uIU/mL (0.465-4.68)
== END ==
PROVIDERS: PCP Internal Medicine Adolescent Medicine; Visit Provider Internal Medicine
DX: R06.00 Dyspnea, unspecified (principal); I25.10 Atherosclerotic heart disease of native coronary artery without angina pectoris; I11.9 Hypertensive heart disease without heart failure; I21.4 Non-ST elevation (NSTEMI) myocardial infarction; E78.5 Hyperlipidemia, unspecified; E11.9 Type 2 diabetes mellitus without complications; F17.200 Nicotine dependence, unspecified, uncomplicated; I63.9 Cerebral infarction, unspecified; Z95.5 Presence of coronary angioplasty implant and graft
CPT/HCPCS: 36415; 80048; 80061; 80076; 84439; 84443; 85025

== ENCOUNTER 2022-05-19 12:27 | Emergency (ER) | payer OTHER, SELFPAY ==
--- NOTE | 2022-05-19 12:34 | PC.NURSE ---
GRETA FRANCES At
[2022-05-19 12:40] VITALS: BP 128/78; PULSE 84; RESP 18; O2SAT 97
[2022-05-19 12:43] VITALS: BP 128/78; PULSE 80; RESP 16; TEMP 36.7; O2SAT 96; BMI 38.5
--- NOTE | 2022-05-19 13:44 | PC.NURSE ---
rounded on pt at this time, pt given a pop updated pt on POC, ER MD states wanted to check wound again for bleeding and then will get pt ready for d/c pt verbalized understanding
--- NOTE | 2022-05-19 13:49 | PC.NURSE ---
GRETA FRANCES at reassessing pt
[2022-05-19 14:00] VITALS: BP 128/74; PULSE 74; RESP 16; TEMP 36.6; O2SAT 99
--- NOTE | 2022-05-19 22:38 | HMH.EDGENADL ---
Discharge Plan Disposition Patient Disposition: Home, Self-Care Condition: Good Prescriptions Prescriptions: No Action atorvastatin 40 mg tablet 40 mg PO HS Qty: 90 3RF lisinopril 10 mg tablet 10 mg PO DAILY Qty: 90 3RF clopidogrel [Plavix] 75 mg tablet 75 mg PO DAILY Qty: 90 3RF nebivolol [Bystolic] 5 mg tablet 5 mg PO DAILY Qty: 90 3RF pantoprazole 40 mg tablet,delayed release (DR/EC) 40 mg PO DAILY Qty: 90 3RF aspirin 81 mg tablet,delayed release (DR/EC) See Rx Instructions .ROUTE .COMPLEX Qty: 90 3RF Dose Instruction: TAKE ONE TABLET BY MOUTH EVERY DAY Rx Instructions: TAKE ONE TABLET BY MOUTH EVERY DAY isosorbide mononitrate 30 mg tablet extended release 24 hr See Rx Instructions .ROUTE .COMPLEX Qty: 90 2RF Dose Instruction: TAKE ONE TABLET BY MOUTH EVERY DAY Rx Instructions: TAKE ONE TABLET BY MOUTH EVERY DAY halobetasol propionate 0.05 % cream 1 applic topical BID 14 Days Qty: 50 1RF Referrals Follow up/Referrals: Edward Valderrama MD [Primary Care Provider] - See instructions Activity Restrictions/Add. Instructions Additional Instructions/Restrictions: Keep the bandage on for 24 hours. Take it off under water. Dress it 2times per day. Follow up with Hand Surgery if needed in 2-3 weeks (Call [phone]). Return with concerns or if you keep bleeding. Clinical Impressions Clinical Impression: Finger laceration Instructions Patient Instructions: DI for Laceration Repair Discharge ED Provider: Maggie Farias General Adult HPI General Chief complaint: Wound/Laceration Stated complaint: AO 05/19 laceration to left thumb Time Seen by Provider: 05/19/22 12:27 Mode of Arrival: Ambulatory Source of Information: Patient Limitations: No Limitations Description of Symptoms (Recalled from ER Triage Doc. 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 UTD Tetanus. +Plavix. Dressing in place, however continued bleeding noted. History of Present Illness HPI narrative: The patient is a 46 year old male who presents with a laceration to his left thumb. He was using a mandolin to cut apples and sliced of a piece. No other injuries. He is on plavix for CAD. Related Data Previous Rx's Medication Instructions Recorded atorvastatin 40 mg tablet 40 mg PO HS #90 tabs 05/08/21 clopidogrel 75 mg tablet (Plavix) 75 mg PO DAILY #90 tabs 05/08/21 lisinopril 10 mg tablet 10 mg PO DAILY #90 tabs 05/08/21 pantoprazole 40 mg tablet,delayed 40 mg PO DAILY #90 tabs 08/16/21 release nebivolol 5 mg tablet (Bystolic) 5 mg PO DAILY #90 tabs 10/18/21 aspirin 81 mg tablet,delayed See Rx Instructions .Route 01/15/22 release .COMPLEX #90 tabs isosorbide mononitrate 30 mg See Rx Instructions .Route 01/15/22 tablet,extended release 24 hr .COMPLEX #90 tabs halobetasol propionate 0.05 % 1 applic topical BID 14 days #50 02/21/22 topical cream grams Allergies Allergy/AdvReac Type Severity Reaction Status Date / Time promethazine Allergy Unknown NA-HALLUCIN Verified 02/19/22 11:13 ATIONS acetaminophen AdvReac Intermediate elevated Verified 02/19/22 11:13 Liver enzymes PFSH [facility] Disclaimer: The information contained in this section may have been updated after the patient was seen, as this information can be updated by other users. Medical History Abnormal electrocardiography Dizziness Fatigue Palpitations Typical angina Social History Smoking Status: Never smoker second hand exposure: Yes alcohol intake: current substance use type: denies use current occupational status: employed Travel in the last 8 weeks: Inside the [place] household members: other housing: house current occupational exposures/hazards: Yes ROS Obtained: Yes All systems reviewed & no additional
== END 2022-05-19 14:04 | disposition home or self-care (01) ==
PROVIDERS: Emergency Provider Emergency Medicine; PCP Internal Medicine Adolescent Medicine
DX: S61.012A Laceration without foreign body of left thumb without damage to nail, initial encounter (principal); W26.0XXA Contact with knife, initial encounter; Y93.G1 Activity, food preparation and clean up; I25.10 Atherosclerotic heart disease of native coronary artery without angina pectoris; Z79.01 Long term (current) use of anticoagulants; Z86.79 Personal history of other diseases of the circulatory system; Z87.891 Personal history of nicotine dependence
CPT/HCPCS: 99283

== ENCOUNTER 2022-12-11 15:25 | Emergency (ER) | payer OTHER, SELFPAY ==
[2022-12-11 15:26] VITALS: BP 148/81; PULSE 100; RESP 18; TEMP 36.5; O2SAT 98; BMI 38.8
--- NOTE | 2022-12-11 15:39 | EXP.UTC ---
Discharge Plan Disposition Patient Disposition: Home, Self-Care Condition: Good Prescriptions Prescriptions: New cyclobenzaprine 10 mg Tablet 10 mg PO BID PRN (Reason: Muscle Spasm) Qty: 20 0RF methylprednisolone 4 mg Tablets,Dose Pack 4 mg PO DIRECTED Qty: 21 0RF No Action azelastine 137 mcg (0.1 %) aerosol,spray intranasal aspirin 81 mg tablet,delayed release (DR/EC) See Rx Instructions .ROUTE .COMPLEX Qty: 90 3RF Dose Instruction: TAKE ONE TABLET BY MOUTH EVERY DAY Rx Instructions: TAKE ONE TABLET BY MOUTH EVERY DAY atorvastatin 40 mg tablet 40 mg PO HS isosorbide mononitrate 30 mg tablet extended release 24 hr See Rx Instructions .ROUTE .COMPLEX Rx Instructions: TAKE ONE TABLET BY MOUTH EVERY DAY clopidogrel [Plavix] 75 mg tablet 75 mg PO DAILY pantoprazole 40 mg tablet,delayed release (DR/EC) See Rx Instructions .ROUTE .COMPLEX Rx Instructions: TAKE ONE TABLET BY MOUTH EVERY DAY lisinopril 10 mg tablet 10 mg PO DAILY nebivolol [Bystolic] 5 mg tablet 5 mg PO DAILY halobetasol propionate 0.05 % cream 1 applic topical BID 14 Days Qty: 50 1RF Referrals Follow up/Referrals: Edward Valderrama MD [Primary Care Provider] - See instructions Activity Restrictions/Add. Instructions Additional Instructions/Restrictions: Go home and rest. It would be best if you rested tomorrow too. No heavy lifting. No twisting. Take the oral medications as directed. The muscle relaxer (cyclobenzaprine--Flexeril) will make you drowsy, so don't drive or operate heavy machinery after taking it. Don't start the oral steroids (medrol dose pack) until tomorrow, since you had the shots in here today. Follow up with your regular doctor. GO TO THE ER FOR ANY WORSENING SYMPTOMS OR CONCERN, ESPECIALLY BOWEL OR BLADDER ISSUES, SADDLE AREA NUMBNESS, FEVER, ETC Clinical Impressions Clinical Impression: Torticollis Instructions Patient Instructions: Talia, DI for Torticollis, Cyclobenzaprine, Methylprednisolone Injection Discharge ED Provider: Hany Kilpatrick [facility] [place] HPI General Stated complaint: neck pain Time Seen by Provider: 12/11/22 15:39 History of Present Illness Provider Complaint: He states that for the past 1 day he has had neck pain and stiffness. He is also having pain in the muscles of his left shoulder also. His symptoms began after he used a chain saw for several hours. He denies any injury. He denies chest pain. Related Data Home Medications Medication Instructions Recorded Confirmed azelastine 137 mcg (0.1 %) nasal ml intranasal 07/20/22 07/20/22 spray aerosol atorvastatin 40 mg tablet 40 mg PO HS High Cholesterol 12/11/22 12/11/22 clopidogrel 75 mg tablet (Plavix) 75 mg PO DAILY Blood Thinner 12/11/22 12/11/22 isosorbide mononitrate 30 mg See Rx Instructions .Route 12/11/22 12/11/22 tablet,extended release 24 hr .COMPLEX . lisinopril 10 mg tablet 10 mg PO DAILY bp 12/11/22 12/11/22 nebivolol 5 mg tablet (Bystolic) 5 mg PO DAILY . 12/11/22 12/11/22 pantoprazole 40 mg tablet,delayed See Rx Instructions .Route 12/11/22 12/11/22 release .COMPLEX gerd Previous Rx's Medication Instructions Recorded aspirin 81 mg tablet,delayed See Rx Instructions .Route 01/15/22 release .COMPLEX #90 tabs halobetasol propionate 0.05 % 1 applic topical BID 14 days #50 02/21/22 topical cream grams cyclobenzaprine 10 mg tablet 10 mg PO BID PRN Muscle Spasm #20 12/11/22 tabs methylprednisolone 4 mg tablets in 4 mg PO DIRECTED #21 tabs 12/11/22 a dose pack Allergies Allergy/AdvReac Type Severity Reaction Status Date / Time promethazine Allergy Unknown NA-HALLUCIN Verified 12/11/22 15:40 ATIONS acetaminophen AdvReac Intermediate elevated Verified 12/11/22 15:40 Liver enzymes [facility] Disclaimer: The information contained in this section may have been updated after the patient
[2022-12-11 16:37] VITALS: BP 148/81; PULSE 100; RESP 18; TEMP 36.5; O2SAT 98
== END 2022-12-11 16:36 | disposition home or self-care (01) ==
PROVIDERS: Emergency Provider Nurse Practitioner Family; PCP Internal Medicine Adolescent Medicine
DX: M43.6 Torticollis (principal); I20.9 Angina pectoris, unspecified; Z77.22 Contact with and (suspected) exposure to environmental tobacco smoke (acute) (chronic)
CPT/HCPCS: 96372; 99212; 99214; G0463

== ENCOUNTER 2023-11-19 15:44 | Outpatient (CLI) | payer OTHER, SELFPAY ==
[2023-11-19 16:02] LABS: Basophils # 0.2 K/mm3 (0-0.2); Basophils % 2.1 % (0.1-2.0); Eosinophils # 0.7 K/mm3 (0.0-0.4); Eosinophils % 6.4 % (0.1-12.0); Hematocrit 47.2 % (42.0-52.0); Hemoglobin 15.4 g/dL (14.1-18.0); Lymphocytes # 3.9 K/mm3 (0.7-4.5); Lymphocytes % 37.9 % (10-50); Mean Corpuscular HGB Conc 32.7 g/dL (31.8-35.4); Mean Corpuscular Hemoglobin 28.9 pg (27.0-31.2); Mean Corpuscular Volume 88.3 fl (80-94); Mean Platelet Volume 7.2 fl (7.4-10.4); Monocytes # 0.7 K/mm3 (0.1-1.0); Monocytes % 6.8 % (1.7-9.3); Neutrophils # 4.8 K/mm3 (1.8-7.8); Neutrophils % 46.8 % (37.0-80.0); Platelet Count 447 K/mm3 (142-424); Red Blood Count 5.34 M/mm3 (4.60-6.20); Red Cell Distribution Width 14.6 % (11.5-17.5); White Blood Count 10.3 K/mm3 (4.8-10.8)
[2023-11-19 16:23] LABS: Albumin Level 4.1 g/dl (3.5-5.0); Chloride 104 mmol/L (98-107); Potassium 4.1 mmoL/L (3.5-5.1); Sodium 137 mmol/L (136-145)
[2023-11-19 16:26] LABS: Alanine Aminotransferase 29 U/L (12-78); Alkaline Phosphatase 85 U/L (38-126); Anion Gap 8.1 mEq/L (5-15); Aspartate Amino Transferase 24 U/L (17-59); Bilirubin,Direct 0.2 mg/dl (0.0-0.4); Bilirubin,Indirect 0.7 mg/dL (0.0-0.9); Bilirubin,Total 0.9 mg/dl (0.2-1.3); Bilirubin,Unconjugated 0.7 mg/dL (0.0-1.1); Blood Urea Nitrogen 12 mg/dl (9-20); Calcium 9.2 mg/dl (8.4-10.2); Carbon Dioxide 29 mmol/L (22.0-30.0); Cholesterol 234 mg/dl (140-200); Estimated Glomerular Filt Rate 89 ml/min (>60); GFR (African American) 108 ML/MIN (>60); Glucose 129 mg/dl (74-100); Total Protein,Serum 6.7 g/dl (6.3-8.2); Triglycerides 272 mg/dl (30-150); VLDL Cholesterol 54 mg/dL (0-40)
[2023-11-19 16:27] LABS: Chol/HDL Ratio 7.8 (1-3.5); HDL Cholesterol 30 mg/dl (40-60)
[2023-11-19 16:37] LABS: Direct LDL Cholesterol 140.84 mg/dL (100-129)
[2023-11-19 16:43] LABS: Triiodothryronine (T3) Uptake 36 % (23.5-40.5)
[2023-11-19 16:44] LABS: Free Thyroxine Index 3.4 ug/dL (5.93-13.13); T4 (Thyroxine) 9.5 ug/dl (5.53-11.0)
[2023-11-19 16:57] LABS: Thyroid Stimulating Hormone 1.21 uIU/mL (0.465-4.68)
== END 2023-11-19 23:59 | disposition home or self-care (01) ==
LOC: LAB 15:49
PROVIDERS: PCP Nurse Practitioner Family; Visit Provider Physician Assistant
DX: R07.89 Other chest pain (principal); I10 Essential (primary) hypertension; R53.83 Other fatigue; E78.2 Mixed hyperlipidemia; I25.10 Atherosclerotic heart disease of native coronary artery without angina pectoris
CPT/HCPCS: 36415; 80048; 80061; 80076; 84436; 84443; 84479; 85025

== ENCOUNTER 2023-11-27 08:51 | Outpatient (CLI) | payer OTHER, SELFPAY ==
[2023-12-07 21:20] LABS: Testosterone, Total, LC/MS 263 ng/dL (.)
== END 2023-11-27 23:59 | disposition home or self-care (01) ==
LOC: LAB.DROPOF 11-28 08:52
PROVIDERS: PCP Nurse Practitioner Family; Visit Provider Nurse Practitioner Family
DX: I10 Essential (primary) hypertension (principal)
CPT/HCPCS: 84403

== ENCOUNTER 2023-12-16 12:19 | Outpatient (CLI) | payer OTHER, SELFPAY ==
[2023-12-27 21:28] LABS: Testosterone, Total, LC/MS 339 ng/dL (.)
== END 2023-12-16 23:59 | disposition home or self-care (01) ==
LOC: LAB 12:20
PROVIDERS: PCP Nurse Practitioner Family; Visit Provider Nurse Practitioner Family
DX: R79.89 Other specified abnormal findings of blood chemistry (principal)
CPT/HCPCS: 36415; 84403

== ENCOUNTER 2024-03-03 09:15 | Emergency (ER) | payer OTHER, SELFPAY ==
--- NOTE | 2024-03-03 10:04 | ED_ITS ---
Discharge Plan Disposition Patient Disposition: Home, Self-Care Condition: Good Prescriptions Prescriptions: New azithromycin [Zithromax] 250 mg tablet 250 mg PO UD DOSE PK Qty: 6 0RF Rx Instructions: Take two (2) tablets today, then one (1) tablet days #2 thru #5 benzonatate 100 mg capsule 100 mg PO TIDP PRN (Reason: Cough) Qty: 30 0RF methylprednisolone 4 mg Tablets,Dose Pack 4 mg PO DIRECTED 6 Days Qty: 21 0RF Rx Instructions: Take 1 pack as directed for 6 days No Action atorvastatin 40 mg tablet 40 mg PO HS Qty: 90 3RF Referrals Follow up/Referrals: Maciel Arambula APRN [Primary Care Provider] - See instructions Activity Restrictions/Add. Instructions Additional Instructions/Restrictions: Drink plenty of fluids. Take tylenol or ibuprofen for pain or fever. Take the medications as directed. Follow up with your regular doctor. GO TO THE ER FOR ANY WORSENING SYMPTOMS Clinical Impressions Clinical Impression: Pharyngitis, Acute viral syndrome Instructions Patient Instructions: Sore Throat, DI for Pharyngitis/Tonsillopharyngitis -- Adult Print Language Print Language: Japanese Discharge ED Provider: Hany iKlpatrick [facility] General Stated complaint: cough, congestion, headache, sore throat Time Seen by Provider: 03/03/24 10:04 Related Data Previous Rx's ?Medication ?Instructions ?Recorded atorvastatin 40 mg tablet 40 mg PO HS High Cholesterol #90 11/19/23 tabs azithromycin 250 mg tablet 250 mg PO UD DOSE PK #6 tabs 03/03/24 (Zithromax) benzonatate 100 mg capsule 100 mg PO TIDP PRN Cough #30 caps 03/03/24 methylprednisolone 4 mg tablets in 4 mg PO DIRECTED 6 days #21 tabs 03/03/24 a dose pack Allergies Allergy/AdvReac Type Severity Reaction Status Date / Time promethazine Allergy Unknown NA-HALLUCIN Verified 11/27/23 09:08 ATIONS acetaminophen AdvReac Intermediate elevated Verified 11/27/23 09:08 Liver enzymes [facility] Disclaimer: The information contained in this section may have been updated after the patient was seen, as this information can be updated by other users. Medical History Abnormal electrocardiography Fatigue Dizziness Palpitations Typical angina Social History Smoking Status: Never smoker second hand exposure: Yes alcohol intake: current alcohol intake frequency: holidays/special occasions only substance use type: denies use current occupational status: employed Travel in the last 8 weeks: Inside the [place] household members: other housing: house current occupational exposures/hazards: Yes Have you lived/traveled outside [place] in past 30 days?: No Contact w/someone who lives/traveled outside [place] past 30 days?: No Exposure to someone with infectious disease in past 14 days?: No Do you have a fever (greater than 100.4 F or 38 C)?: No Have you tested positive for COVID-19: No Exposed to someone with COVID-19 in past 14 days?: No Do you have a sore throat?: Yes Do you have a cough?: Yes Do you have any weakness?: No Do you have any diarrhea?: No Are you experiencing any unusual bleeding?: No Do you have any muscle aches/pain?: No Do you have any abdominal pain?: No Are you experiencing loss of taste or smell?: No ROS Obtained: Yes All systems reviewed & no additional complaints except as documented Constitutional Constitutional: Reports chills and Reports fever(s) Eyes Eyes: Denies eye discharge ENT Ears, Nose, Mouth, and Throat: Reports as per HPI Cardiovascular Cardiovascular: Denies chest pain Respiratory Respiratory: Denies chest congestion and Reports cough Gastrointestinal Gastrointestingal: Reports nausea; Denies abdominal pain, constipation, cramping, diarrhea or vomiting Musculoskeletal Musculoskeletal: Denies arthralgias Integumentary/Breasts Skin/Breast: Denies rash Neurologic Neurologic: Denies paresthesias Physical Exam General General appearance: alert and in no apparent distress Eye Eye exam: Present normal appearance, PERRL and EOMI ENT ENT exam: Present mucous membranes moist and normal external ear exam Expanded ENT Exam External ear exam: Present normal external inspection TM/Canal exam: Bilateral TM: erythema and bulging Nose exam: Absent sinus tenderness Nasal speculum exam: Bilateral: normal Mouth exam: Present normal external inspection; Absent drooling Teeth exam: Present normal inspection Throat exam: Present tonsillar erythema and tonsillomegaly Neck Neck exam: Present normal inspection, full ROM and trachea midline; Absent tenderness, lymphadenopathy or thyromegaly Chest Chest inspection: Present normal inspection and symmetric chest wall rise; Absent tenderness or rash Respiratory Respiratory exam: Present normal lung sounds bilaterally; Absent respiratory distress, wheezes, stridor or accessory muscle use Cardiovascular Cardiovascular exam: Present regular rate, normal rhythm and normal heart sounds Abdominal Exam Abdominal exam: Present soft; Absent distention, tenderness, guarding, rebound or rigidity Extremities Exam Extremities exam: Present normal inspection, full ROM and normal capillary refill; Absent tenderness or calf tenderness Back Exam Back exam: Present normal inspection and full ROM; Absent tenderness Neurological Exam Neurological exam: Present alert and oriented X3 Psychiatric Psychiatric exam: Present normal affect and normal mood Skin Skin exam: Present warm, dry, intact and normal color Lymphatic Lymphatic Findings: no adenopathy Medical Decision Making Medical Records Medical records reviewed: No I reviewed the patient's medical records. Screening: Per USPSTF and CDC recommendations, given the prevalence of disease in our region, it is our hospital?s policy to screen for HIV and viral Hepatitis for all patients aged 18 and over and those with ongoing risk factors. Kyle Inquiry Pt receiving controlled substance: No Lab Data Lab results reviewed: Yes I reviewed the patient's lab results.
[2024-03-03 10:16] LABS: UTC Strep Screen (Rapid) Negative (Negative)
[2024-03-03 10:17] VITALS: BP 141/91; PULSE 98; RESP 20; TEMP 36.9; O2SAT 96; BMI 36.8
[2024-03-03] MEDS: DEXAMETHASONE 4MG/ML 1ML VIAL 8 MG IM (10:30)
[2024-03-03] MEDS: cefTRIAXone 1GM VIAL 1 GM IM (10:30)
[2024-03-03] MEDS: LIDOCAINE 1% 5ML PF VIAL IM (10:31)
[2024-03-03 11:17] VITALS: BP 141/91; PULSE 98; RESP 20; TEMP 36.9
[2024-03-03 11:17] LABS: Coronavirus 19, PCR Not Detected (NotDetected); Influenza A, PCR Not Detected (NotDetected); Influenza B, PCR Not Detected (NotDetected)
== END 2024-03-03 11:17 | disposition home or self-care (01) ==
PROVIDERS: Emergency Provider Nurse Practitioner Family; PCP Nurse Practitioner Family
DX: B34.9 Viral infection, unspecified (principal); J02.9 Acute pharyngitis, unspecified; R05.9 Cough, unspecified; R09.81 Nasal congestion; R51.9 Headache, unspecified; R50.9 Fever, unspecified
CPT/HCPCS: 87636; 87880; 96372; 99212; G0381; J0696; J1100